=== PATIENT | female | born 1950 | race Hispanic/Latino ===

== ENCOUNTER 2018-12-11 13:23 | Emergency (ER) | payer MEDICARE ==
[~2018-12-11] VITALS: Ht 152.4 cm; Wt 63.5 kg
--- OUTSIDE RECORDS SUMMARY | 2018-12-11 13:26 | XMS REPORT | CCD ---
Author Author Auto Generated Organization [facility] Address Unknown Phone Unavailable Care Team Providers Care Line Installation Supervisor Name Role Phone Nimco Larkin CP Allergies, Adverse Reactions, Alerts Substance Reaction Status penicillins Active Problem List Condition Effective Dates Status dm Resolved GERD - Gastro-esophageal reflux disease Resolved HLD - Hyperlipidemia Resolved HTN - Hypertension Resolved Medications Medication Instructions Start Date End Date Status ondansetron 4 mg, Route: IVP, ONCE, Dosing 11/11/2012 11/12/2012 Completed Weight 77.273, kg, Priority: STAT, Start date: 11/11/12 23:41:00, Stop date: 11/11/12 23:41:00 nitroglycerin 0.4 mg, 1 tab, Route: SL, Drug 11/11/2012 11/12/2012 Discontinued form: TAB, Q5Min, Dosing Weight 77.273, kg, PRN Chest Pain, Start date: 11/11/12 23:41:00, Duration: 3 doses or times, Stop date: Limited # of times Saline Flush 0.9% 5 mL, Route: IVP, Drug Form: INJ, 11/11/2012 11/12/2012 Discontinued Dosing Weight 77.273, kg, Q8H, PRN Line Flush, Start date: 11/11/12 23:41:00, Duration: 30 day, Stop date: 12/11/12 23:40:00, Administer at least once every 8 hours Administer at least once every 8 hours GI cocktail 30 mL, Route: PO, Dosing Weight 11/12/2012 11/12/2012 Completed 77.273, kg, ONCE, STAT, Start date: 11/12/12 2:13:00, Stop date: 11/12/12 2:13:00 ketorolac 30 mg, Route: IVP, Drug form: INJ, 11/12/2012 11/12/2012 Completed ONCE, Dosing Weight 77.273, kg, Priority: STAT, Start date: 11/12/12 2:13:00, Stop date: 11/12/12 2:13:00 naproxen 500 mg oral 500 mg, PO, BID, PRN, 30 tab, Pain, 11/12/2012 11/27/2012 Ordered enteric coated Substitution Allowed delayed-release tablet Zantac 150 oral 150 mg, 1 tab, PO, BID, 60 tab, 11/12/2012 Ordered tablet Substitution Allowed Vital Signs Most recent to oldest [Reference Range]: 1 2 3 Height 152.4 cm (11/11/2012 23:11:00) Temperature Oral [96.4-99.1 DegF] 97.6 DegF (11/12/2012 02:26:00) 99.3 DegF *HI* (11/11/2012 23:11:00) Systolic Blood Pressure [90-140 mmHg] 142 mmHg *HI* (11/12/2012 02:26:00) 147 mmHg *HI* (11/12/2012 01:20:00) 143 mmHg *HI* (11/12/2012 00:18:00) Diastolic Blood Pressure [60-90 mmHg] 71 mmHg (11/12/2012 02:26:00) 56 mmHg *LOW* (11/12/2012 01:20:00) 47 mmHg *LOW* (11/12/2012 00:18:00) Respiratory Rate [14-20 BRMIN] 21 BRMIN *HI* (11/12/2012 02:26:00) 19 BRMIN (11/12/2012 01:20:00) 25 BRMIN *HI* (11/12/2012 00:18:00) Peripheral Pulse Rate [60-100 bpm] 80 bpm (11/11/2012 23:11:00) Weight 77.273 kg (11/11/2012 23:11:00) Results CHEMISTRY Most recent to oldest [Reference Range]: 1 Sodium Lvl [135-145 mEq/L] 143 mEq/L (11/11/2012 00:30:00) Potassium Lvl [3.5-5.1 mEq/L] 3.9 mEq/L (11/11/2012 00:30:00) Chloride Lvl [95-109 mEq/L] 105 mEq/L (11/11/2012 00:30:00) CO2 [24-32 mEq/L] 24 mEq/L (11/11/2012 00:30:00) AGAP [10.0-20.0 mEq/L] 17.9 mEq/L (11/11/2012 00:30:00) Creatinine Lvl [0.5-1.4 mg/dL] 0.8 mg/dL (11/11/2012 00:30:00) eGFR 79 mL/min/1.73m2 1 *NA* (11/11/2012 00:30:00) BUN [7-22 mg/dL] 20 mg/dL (11/11/2012 00:30:00) B/C Ratio [6-25] 25 (11/11/2012 00:30:00) Glucose Lvl [70-99 mg/dL] 242 mg/dL 2 *HI* (11/11/2012 00:30:00) Total Protein [6.4-8.4 g/dL] 7.5 g/dL (11/11/2012 00:30:00) Albumin Lvl [3.5-5.0 g/dL] 3.6 g/dL (11/11/2012 00:30:00) Globulin [2.0-4.0 g/dL] 3.9 g/dL (11/11/2012 00:30:00) A/G Ratio [0.7-1.6] 0.9 (11/11/2012 00:30:00) Calcium Lvl [8.5-10.5 mg/dL] 9.1 mg/dL (11/11/2012 00:30:00) ALT [0-65 unit/L] 28 unit/L (11/11/2012 00:30:00) AST [0-37 unit/L] 16 unit/L (11/11/2012 00:30:00) Alk Phos [39-136 unit/L] 154 unit/L *HI* (11/11/2012 00:30:00) Bili Total [0.2-1.3 mg/dL] 0.2 mg/dL (11/11/2012 00:30:00) Lipase Lvl [73-393 unit/L] 106 unit/L (11/11/2012 00:30:00) Total CK [12-191 unit/L] 36 unit/L (11/11/2012 00:30:00) CK MB [0.5-3.6 ng/mL] <0.5 ng/mL (11/11/2012 00:30:00) CK MB Index [0.0-2.5] <1.4 (11/11/2012 00:30:00) Troponin-I [0.00-0.40 ng/mL] <0.02 ng/mL (11/11/2012 00:30:00) BNP [<=100 pg/mL] 19 pg/mL 3 (11/11/2012 00:30:00) 1Result Comment: The eGFR is calculated using the CKD-EPI formula. In most young, healthy individuals the eGFR will be >90 mL/min/1.73m2. The eGFR declines with age. An eGFR of 60-89 may be normal in some populations, particularly the elderly, for whom the CKD-EPI formula has not been extensively validated. Use of the eGFR is not recommended in the following populations: Individuals with unstable creatinine concentrations, including patients and those with serious co-morbid conditions. Patients with extremes in muscle mass or diet. The data above are obtained from the National Kidney Disease Education Program ( NKDEP) which additionally recommends that when the eGFR is used in patients with extremes of body mass index for purposes of drug dosing, the eGFR should be mul tiplied by the estimated BMI. 2Interpretive Data: Adult reference range values reflect the clinical guidelines of the [place] [employer]. 3Interpretive Data: Elevated results are in line with increasing severity of congestive heart failure. Minor elevations between 100 and 300 may be seen with Myocardial Ischemia, Sodium retaining drugs, and compensated/treated heart failure. HEMATOLOGY Most recent to oldest [Reference Range]: 1 WBC [3.7-10.4 K/CMM] 6.8 K/CMM (11/11/2012 00:30:00) RBC [4.20-5.40 M/CMM] 4.49 M/CMM (11/11/2012 00:30:00) Hgb [12.0-16.0 g/dL] 13.0 g/dL (11/11/2012 00:30:00) Hct [36.0-48.0 %] 39.4 % (11/11/2012 00:30:00) MCV [81.0-99.0 fL] 87.7 fL (11/11/2012 00:30:00) MCH [27.0-31.0 pg] 28.9 pg (11/11/2012 00:30:00) MCHC [32.0-36.0 g/dL] 33.0 g/dL (11/11/2012 00:30:00) RDW [11.5-14.5 %] 13.3 % (11/11/2012 00:30:00) Platelet [133-450 K/CMM] 235 K/CMM (11/11/2012 00:30:00) MPV [7.4-10.4 fL] 9.1 fL (11/11/2012 00:30:00) Segs [45.0-75.0 %] 59.0 % (11/11/2012 00:30:00) Lymphocytes [20.0-40.0 %] 32.3 % (11/11/2012 00:30:00) Monocytes [2.0-12.0 %] 6.7 % (11/11/2012 00:30:00) Eosinophils [0.0-4.0 %] 1.4 % (11/11/2012 00:30:00) Basophils [0.0-1.0 %] 0.6 % (11/11/2012 00:30:00) Segs-Bands # [1.5-8.1 K/CMM] 4.0 K/CMM (11/11/2012 00:30:00) Lymphocytes # [1.0-5.5 K/CMM] 2.2 K/CMM (11/11/2012 00:30:00) Monocytes # [0.0-0.8 K/CMM] 0.5 K/CMM (11/11/2012 00:30:00) Eosinophils # [0.0-0.5 K/CMM] 0.1 K/CMM (11/11/2012 00:30:00) Basophils # [0.0-0.2 K/CMM] 0.0 K/CMM (11/11/2012 00:30:00) D-Dimer 0.22 ug/mL FEU 4 *NA* (11/11/2012 00:30:00) 4Interpretive Data: In DIC, quantitative D-Dimer is generally greater than 0.66 ug/mL FEU. Values of quantitative D-Dimer less than 0.40 ug/mL FEU have been reported to be associated with a low probability of deep vein thrombosis/pulmonary embolism. This test alone should not be used to rule out DVT/PE.
--- OUTSIDE RECORDS SUMMARY | 2018-12-11 13:26 | XMS REPORT | Summary of Care ---
Author Author [facility] Organization [facility] Address Unknown Phone Unavailable Encounter HQ Funmintr_edgar(FIN) [id number] Date(s): 03/05/17 - 03/06/17 [facility] [address], [address] [place], [place] [id number]- [phone] Vital Signs No data available for this section Problem List Condition Effective Dates Status Health Status Informant Benign Active hypertension(Confirm ed)1 Chronic Active headaches(Confirmed) Non-compliance(Confi Active rmed) GERD - Active Gastro-esophageal reflux disease(Confirmed) Type 2 diabetes Active mellitus with hyperglycemia(Confir med) Hyperlipidemia(Confi 01/08/13 Active rmed)2 Elevated Active LFTs(Confirmed) Microalbuminuria(Con Active firmed) Obesity(Confirmed) Active Post-menopause(Confi Active rmed) Insomnia(Confirmed) Active DM type 2 causing Active CKD stage 2(Confirmed) 1Data migrated from [employer] on 08/13/14. 2Data migrated from [employer] on 08/13/14. Allergies, Adverse Reactions, Alerts Substance Reaction Severity Status penicillins1 Active 1Data migrated from [employer] on 10/13/14. Originally documented as PENICILLIN. Medications No data available for this section Results No data available for this section Immunizations Given and Recorded Vaccine Date Status Refusal Reason influenza virus vaccine, inactivated1 01/15/17 Given 1Result Comment: Patient waited 15 min with no reaction. Procedures Procedure Date Related Diagnosis Body Site Diabetic retinopathy screening1 03/17/16 Colonoscopy2 2016 Mammogram 2016 Cervical cytology screening 2015 Hysterectomy 1no retinopathy 2diverticulosis Social History Social History Type Response Exercise Exercise duration: 30. Exercise frequency: 3-4 times/week. Exercise type: Walking. Alcohol Never Smoking Status Former smoker; Exposure to Tobacco Smoke None; Cigarette Smoking Last 365 Days No; Reg Smoking Cessation Counseling No1 1Stopped smoking about 30 years ago. Assessment and Plan No data available for this section
--- OUTSIDE RECORDS SUMMARY | 2018-12-11 13:26 | XMS REPORT | Summary of Care ---
Author Author [facility] Organization [facility] Address Unknown Phone Unavailable Encounter HQ Encntr_aliindra(FIN) [id number] Date(s): 01/01/18 - 01/01/18 [facility] [address] [address]- Attending Physician: Nida Bolivar DO Vital Signs No data available for this section Problem List Condition Effective Dates Status Health Status Informant Benign Active hypertension(Confirm ed)1 Chronic Active cough(Confirmed) Chronic Active headaches(Confirmed) Non-compliance(Confi Active rmed) GERD - Active Gastro-esophageal reflux disease(Confirmed) Type 2 diabetes Active mellitus with hyperglycemia(Confir med) Hyperlipidemia(Confi 01/08/13 Active rmed)2 Microalbuminuria(Con Active firmed) Non-proliferative Active diabetic retinopathy(Confirme d) Obesity(Confirmed) Active Insomnia(Confirmed) Active Subclinical Active hypothyroidism(Confi rmed) 1Data migrated from [employer] on 08/13/14. [...] Procedures Procedure Date Related Diagnosis Body Site Status Diabetic retinopathy screening 06/24/17 Completed Diabetic retinopathy screening1 03/17/16 Completed Colonoscopy2 2015 Completed Mammogram 2015 Completed Cervical cytology screening 2014 Completed Hysterectomy Completed 1no retinopathy 2diverticulosis Social History Social History Type Response Exercise Exercise duration: 30. Exercise frequency: 3-4 times/week. Exercise type: Walking. Alcohol Never Smoking Status Former smoker; Type: Cigarettes; Previous treatment: None; Ready to change: No; Concerns about tobacco use in household: No; Exposure to Tobacco Smoke None; Cigarette Smoking Last 365 Days No; Reg Smoking Cessation Counseling No1 entered on: 10/04/17 1Stopped smoking about 30 years ago. Assessment and Plan No data available for this section
--- OUTSIDE RECORDS SUMMARY | 2018-12-11 13:26 | XMS REPORT | Clinical Summary ---
Author Author [facility] Address Unknown Phone Unavailable Care Team Providers Care Mass Spectrometry Specialist Name Role Phone Nida Bolivar PCP Unavailable Allergies Comments Active Allergy Reactions Severity Noted Date Penicillins Rash Low 09/27/2014 Medications End Date Status Medication Sig Dispensed Refills Start Date Active insulin aspart (NOVOLOG) Inject 0 100 unit/mL injection subcutaneousl y 3 (three) times daily before meals Sliding Scale. Active mirtazapine (REMERON) 30 Take 30 mg by 0 MG tablet mouth nightly. Active dexlansoprazole 60 mg Take 60 mg by 0 capsule mouth daily. Active atorvastatin (LIPITOR) 40 Take 40 mg by 0 MG tablet mouth daily. Active lisinopril Take 2 30 tablet 0 (PRINIVIL,ZESTRIL) 10 MG tablets (20 7 tablet mg total) by mouth daily. 01/28/2018 acetaminophen (TYLENOL) Take 2 30 tablet 0 325 MG tablet tablets (650 7 mg total) by mouth every 6 (six) hours as needed for up to 360 days. Active Problems Problem Noted Date History of seizure 01/29/2017 Encephalopathy 01/28/2017 Fever 01/28/2017 Hypokalemia 06/11/2015 Diarrhea 06/10/2015 Dehydration 06/10/2015 Hypertension 06/10/2015 Hypercholesterolemia 06/10/2015 Type 2 diabetes mellitus without complication, with long-term current use 06/10/2015 of insulin Diabetes mellitus 06/10/2015 Family History Medical History Relation Name Comments Diabetes Brother Diabetes Sister Relation Name Status Comments Brother Sister Social History Date Tobacco Use Types Packs/Day Years Used Never Smoker Alcohol Use Drinks/Week oz/Week Comments No Sex Assigned at Date Recorded Not on file Industry Job Start Date Occupation Not on file Not on file Not on file Travel End Travel History Travel Start No recent travel history available. Last Filed Vital Signs Not on file Plan of Treatment Not on file Results Not on fileafter 12/10/2017 Insurance Payer Benefit Subscriber ID Type Phone Address Plan / Group [employer] MEDICARE [employer] xxxxxxxx [employer] Advance Directives For more information, please contact: [address] [address] Date Inactivated Comments Code Status Date Activated 02/02/2017 2:21 PM Full Code 01/28/2017 11:42 AM This code status was determined by: Patient 06/11/2015 3:40 PM Full Code 06/10/2015 9:45 AM This code status was determined by: Patient
--- OUTSIDE RECORDS SUMMARY | 2018-12-11 13:26 | XMS REPORT | Summary of Care ---
Author Author [facility] Organization [facility] Address Unknown Phone Unavailable Encounter HQ Funmintr_edgar(FIN) [id number] Date(s): 02/17/17 - 02/18/17 [facility] [address], [address] [place], [place] [address]- [phone] Vital Signs No data available for this [...]
--- OUTSIDE RECORDS SUMMARY | 2018-12-11 13:26 | XMS REPORT | Continuity of Care Document ---
Author Author [employer] Address Unknown Phone Unavailable Care Team Providers Care Progressive Care Manager Name Role Phone Yatedo Unavailable Unavailable Problems Problem Status Onset Date Classification Date Reported Comments Source Cough 10/04/2017 04/23/2018 [facility] COUGH Active 10/04/2017 [facility] Other specified disorders of breast 06/18/2017 09/17/2017 [facility] DX: INCONCLUSIVE MMG Active 05/29/2017 [facility] Encounter for screening mammogram for malignant neoplasm of breast 05/15/2017 08/13/2017 [facility] DX: Z13.820=ENCOUNTER FOR SCREENING FOR Active 04/14/2017 [facility] Nausea 03/13/2017 03/16/2017 [facility] Weakness 03/13/2017 03/16/2017 [facility] LOW BLOOD SUGAR Active 03/12/2017 [facility] Hyperlipidemia (disorder) Active 01/08/2013 Problem 07/21/2018 Data migrated from [employer] on 08/13/14. Medical [facility] CHEST PAIN Active 11/11/2012 [facility] Benign hypertension (disorder) Active Problem 07/21/2018 Data migrated from [employer] on 08/13/14. Medical [facility] Chronic headache disorder (disorder) Active Problem 07/21/2018 Medical [facility] Noncompliance (finding) Active Problem 07/21/2018 [facility] Gastroesophageal reflux disease (disorder) Active Problem 07/21/2018 [facility] Hyperglycemia due to type 2 diabetes mellitus (disorder) Active Problem 07/21/2018 Medical [facility] Liver function tests abnormal (finding) Active Problem 09/26/2017 Medical [facility] Microalbuminuria (finding) Active Problem 07/21/2018 Medical [facility] Obesity (disorder) Active Problem 07/21/2018 [facility] Postmenopausal state (finding) Active Problem 09/26/2017 [facility] Insomnia (disorder) Active Problem 07/21/2018 [facility] Diabetes mellitus type 2 (disorder) Active Problem 09/26/2017 [facility] Disorder of bone, unspecified 08/13/2017 [facility] Other specified disorders of bone density and structure, other site 08/13/2017 [facility] Other specified disorders of bone density and structure, left thigh 08/13/2017 [facility] Chronic cough (finding) Active Problem 07/21/2018 [facility] Non proliferative diabetic retinopathy (disorder) Active Problem 07/21/2018 Medical [facility] Subclinical hypothyroidism (disorder) Active Problem 07/21/2018 Medical [facility] Solitary cyst of left breast 09/17/2017 [facility] Solitary cyst of right breast 09/17/2017 [facility] dm Resolved Problem 11/14/2012 [facility] GERD - Gastro-esophageal reflux disease Resolved Problem 11/14/2012 [facility] HLD - Hyperlipidemia Resolved Problem 11/14/2012 [facility] HTN - Hypertension Resolved Problem 11/14/2012 [facility] Type 2 diabetes mellitus without complications 04/23/2018 [facility] Essential (primary) hypertension 04/23/2018 [facility] Hyperlipidemia, unspecified 04/23/2018 [facility] Personal history of nicotine dependence 04/23/2018 [facility] skilled nursing (current) use of insulin 04/23/2018 [facility] INCONCLUSIVE MAMMOGRAM Active [facility] DISORDER OF BONE, UNSPECIFIED Active [facility] Medications Medication Details Route Status Patient Instructions Ordering Provider Order Date Source dexlansoprazole 60 MG Enteric Coated Capsule [Dexilant] See Instructions, TAKE 1 CAPSULE BY MOUTH DAILY, # 90 cap, 1 Refill(s), Pharmacy: [facility] [id number] Active 10/15/2017 [facility] dexlansoprazole 60 MG Enteric Coated Capsule [Dexilant] See Instructions, TAKE 1 CAPSULE BY MOUTH DAILY, # 90 cap, 1 Refill(s), Pharmacy: [facility] No Longer Active 10/14/2017 [facility] {21 (Methylprednisolone 4 MG Oral Tablet [Medrol]) } Pack [Medrol Dosepak] See Instructions, PO, Take by mouth as directed on label., # 1 Pack, 0 Refill(s) Active 10/04/2017 [facility] dexlansoprazole 60 MG Enteric Coated Capsule [Dexilant] See Instructions, TAKE 1 CAPSULE BY MOUTH DAILY, # 90 cap, 1 Refill(s), Pharmacy: [facility] [id number] No Longer Active 10/02/2017 [facility] atorvastatin 40 mg oral tablet 40 mg=1 tab, PO, Bedtime, # 90 tab, 1 Refill(s), [facility] [id number] Active 10/02/2017 [facility] losartan 50 mg oral tablet 50 mg=1 tab, PO, Daily, # 90 tab, 1 Refill(s), Pharmacy: [facility] [id number] Active 10/02/2017 [facility] Group benzonatate 100 mg oral capsule 100 mg=1 cap, PO, TID, do not crush or chew, X 10 day, # 30 cap, 2 Refill(s), [facility] [id number] No Longer Active 10/02/2017 [facility] 3 ML Insulin Glargine 100 UNT/ML Pen Injector [Basaglar] 20 unit, SUB-Q, Bedtime, # 6 mL, 3 Refill(s) Active 10/02/2017 [facility] amitriptyline 25 mg oral tablet 25 mg=1 tab, PO, Bedtime, # 30 tab, 1 Refill(s) Active 10/02/2017 [facility] Trulicity Pen 1.5 mg, SUB-Q, qWeek, 0 Refill(s) Active 10/02/2017 [facility] lisinopril 10 mg oral tablet 10 mg=1 tab, PO, Daily, # 30 tab, 0 Refill(s) Inactive 10/02/2017 [facility] Group lisinopril 20 mg oral tablet 20 mg=1 tab, PO, Daily, # 90 tab, 1 Refill(s), [facility] [id number] Active 05/15/2017 [facility] naproxen 500 mg oral enteric coated delayed-release tablet 500 mg, PO, BID, PRN, 30 tab, Pain, Substitution Allowed PO Active [place] 11/12/2012 [facility] Zantac 150 oral tablet 150 mg, 1 tab, PO, BID, 60 tab, Substitution Allowed PO Active [place] 11/12/2012 [facility] GI cocktail 30 mL, Route: PO, Dosing Weight 77.273, kg, ONCE, STAT, Start date: 11/12/12 2:13:00, Stop date: 11/12/12 2:13:00 PO No Longer Active [place] 11/12/2012 [facility] ketorolac 30 mg, Route: IVP, Drug form: INJ, ONCE, Dosing Weight 77.273, kg, Priority: STAT, Start date: 11/12/12 2:13:00, Stop date: 11/12/12 2:13:00 IVP No Longer Active [facility] 11/12/2012 [facility] ondansetron 4 mg, Route: IVP, ONCE, Dosing Weight 77.273, kg, Priority: STAT, Start date: 11/11/12 23:41:00, Stop date: 11/11/12 23:41:00 IVP No Longer Active [facility] 11/12/2012 [facility] nitroglycerin 0.4 mg, 1 tab, Route: SL, Drug form: TAB, Q5Min, Dosing Weight 77.273, kg, PRN Chest Pain, Start date: 11/11/12 23:41:00, Duration: 3 doses or times, Stop date: Limited # of times SL No Longer Active [facility] 11/12/2012 [facility] Saline Flush 0.9% 5 mL, Route: IVP, Drug Form: INJ, Dosing Weight 77.273, kg, Q8H, PRN Line Flush, Start date: 11/11/12 23:41:00, Duration: 30 day, Stop date: 12/11/12 23:40:00, Administer at least once every 8 hoursAdminister at least once every 8 hours IVP No Longer Active [place] 11/12/2012 [facility] Allergies, Adverse Reactions, Alerts Substance Category Reaction Severity Reaction type Status Date Reported Comments Source penicillins<sup>1</sup> Assertion Drug allergy Active Data migrated from [employer] on 10/13/14. Originally documented as PENICILLIN. Medical Group penicillins drug allergy Allergy Active [facility] Immunizations Immunization Date Given Site Status Last Updated Comments Source influenza virus vaccine, inactivated<sup>1</sup> 01/15/2017 Right Deltoid completed [facility] Result Comment: Patient waited 15 min with no reaction. Medical Group,[facility] Results Order Name Results Value Reference Range Date Interpretation Comments Source CHEMISTRY BNP 19 <=100 11/11/2012 Normal <sup>3</sup>Interpretive Data: Elevated results are in line with increasing severity of
congestive heart failure. Minor elevations between 100 and 300
may be seen with Myocardial Ischemia, Sodium retaining drugs,
and compensated/treated heart failure. [facility] CHEMISTRY Lipase Lvl 106 73 - 393 11/11/2012 Normal [facility] CHEMISTRY Total CK 36 12 - 191 11/11/2012 Normal [facility] CHEMISTRY CK MB <0.5 0.5 - 3.6 11/11/2012 Normal [facility] CHEMISTRY Troponin-I <0.02 0.00 - 0.40 11/11/2012 Normal [facility] CHEMISTRY Chloride Lvl 105 95 - 109 11/11/2012 Normal [facility] CHEMISTRY Potassium Lvl 3.9 3.5 - 5.1 11/11/2012 Normal [facility] CHEMISTRY Sodium Lvl 143 135 - 145 11/11/2012 Normal [facility] CHEMISTRY eGFR 79 11/11/2012 NA <sup>1</sup>Result Comment: The eGFR is calculated using the CKD-EPI formula. In most young, healthy individuals the eGFR will be >90 mL/min/1.73m2. The eGFR declines with age. An eGFR of 60-89 may be normal in some populations, particularly the elderly, for whom the CKD-EPI formula has not been extensively validated. Use of the eGFR is not recommended in the following populations:& lt;br/>
Individuals with unstable creatinine concentrations, including patients and those with serious co-morbid conditions.

Patients with extremes in muscle mass or diet.

The data above are obtained from the National Kidney Disease Education Program (NKDEP) which additionally recommends that when the eGFR is used in patients with extremes of body mass index for purposes of drug dosing, the eGFR should be multiplied by the estimated BMI. [facility] CHEMISTRY BUN 20 7 - 22 11/11/2012 Normal [facility] CHEMISTRY Glucose Lvl 242 70 - 99 11/11/2012 [place] <sup>2</sup>Interpretive Data: Adult reference range values reflect the clinical guidelines
of the [place] [employer]. [facility] CHEMISTRY Total Protein 7.5 6.4 - 8.4 11/11/2012 Normal [facility] CHEMISTRY Calcium Lvl 9.1 8.5 - 10.5 11/11/2012 Normal [facility] CHEMISTRY Creatinine Lvl 0.8 0.5 - 1.4 11/11/2012 Normal [facility] CHEMISTRY CO2 24 24 - 32 11/11/2012 Normal [facility] CHEMISTRY Bili Total 0.2 0.2 - 1.3 11/11/2012 Normal [facility] CHEMISTRY Alk Phos 154 39 - 136 11/11/2012 HI [facility] CHEMISTRY ALT 28 0 - 65 11/11/2012 Normal [facility] CHEMISTRY Albumin Lvl 3.6 3.5 - 5.0 11/11/2012 Normal [facility] CHEMISTRY Globulin 3.9 2.0 - 4.0 11/11/2012 Normal [facility] CHEMISTRY B/C Ratio 25 6 - 25 11/11/2012 Normal [facility] CHEMISTRY AST 16 0 - 37 11/11/2012 Normal [facility] CHEMISTRY AGAP 17.9 10.0 - 20.0 11/11/2012 Normal [facility] CHEMISTRY A/G Ratio 0.9 0.7 - 1.6 11/11/2012 Normal [facility] CHEMISTRY CK MB Index <1.4 0.0 - 2.5 11/11/2012 Normal [facility] HEMATOLOGY D-Dimer 0.22 11/11/2012 NA <sup>4</sup>Interpretive Data: In DIC, quantitative D-Dimer is generally greater than
0.66 ug/mL FEU. Values of quantitative D-Dimer less than
0.40 ug/mL FEU have been reported to be associated with a low
probability of deep vein thrombosis/pulmonary embolism.
This test alone should not be used to rule out DVT/PE. [facility] HEMATOLOGY Hct 39.4 36.0 - 48.0 11/11/2012 Normal [facility] HEMATOLOGY MCV 87.7 81.0 - 99.0 11/11/2012 Normal [facility] HEMATOLOGY Hgb 13.0 12.0 - 16.0 11/11/2012 Normal [facility] HEMATOLOGY MCH 28.9 27.0 - 31.0 11/11/2012 Normal [facility] HEMATOLOGY MCHC 33.0 32.0 - 36.0 11/11/2012 Normal [facility] HEMATOLOGY WBC 6.8 3.7 - 10.4 11/11/2012 Normal [facility] HEMATOLOGY RBC 4.49 4.20 - 5.40 11/11/2012 Normal [facility] HEMATOLOGY Platelet 235 133 - 450 11/11/2012 Normal [facility] MPV 9.1 7.4 - 10.4 11/11/2012 Normal [facility] RDW 13.3 11.5 - 14.5 11/11/2012 Normal [facility] Segs 59.0 45.0 - 75.0 11/11/2012 Normal [facility] Lymphocytes 32.3 20.0 - 40.0 11/11/2012 Normal [facility] Monocytes # 0.5 0.0 - 0.8 11/11/2012 Normal [facility] HEMATOLOGY Eosinophils # 0.1 0.0 - 0.5 11/11/2012 Normal [facility] Basophils # 0.0 0.0 - 0.2 11/11/2012 Normal [facility] Basophils 0.6 0.0 - 1.0 11/11/2012 Normal [facility] Monocytes 6.7 2.0 - 12.0 11/11/2012 Normal [facility] Segs-Bands # 4.0 1.5 - 8.1 11/11/2012 Normal [facility] Lymphocytes # 2.2 1.0 - 5.5 11/11/2012 Normal [facility] Eosinophils 1.4 0.0 - 4.0 11/11/2012 Normal [facility] Pathology Reports No Data Provided for This Section Diagnostic Reports Report Value Date Source Chest 1view DX Chest, single view dated 10/04/2017. HISTORY: Cough. Comparison is made to a prior study dated 11/11/2012. The heart is normal in size. Atherosclerotic calcification is identified in the aortic arch. The lungs appear clear. The pulmonary vasculature is normal in caliber. No acute pleural space after maladies are detected. IMPRESSION: 1. No radiographic evidence of acute cardiopulmonary disease. SL: 131 10/04/2017 [facility] Breast Complete Janet US COMPLETE ULTRASOUND OF BOTH BREASTS AND AXILLA: 06/11/2017 CLINICAL: /Densities abnormal mammogram, mammographic nodule/density. COMPARISON:Comparison is made to exam dated: 05/07/2017 mammogram - [facility]. TECHNIQUE: Color flow and real-time ultrasound of both breasts four quadrants, retroareolar, and axilla regions were performed. Nielsen scale images of the real- time examination were reviewed. FINDINGS: There are small benign scattered simple and minimally complicated cysts with a circumscribed margin with internal echoes and posterior enhancement both breasts that correlate with mammography. No abnormalities were seen sonographically in either axilla. IMPRESSION: BENIGN There is no sonographic evidence of malignancy. Return to annual mammogram screening schedule is recommended.(05/07/2018) The results were reviewed with the patient and her daughter. This exam was interpreted at [id number] for [facility]. Walter Glynn M.D. jt/:06/11/2017 11:12:14 [employer] Kenroy Holman, [facility] letter sent: BI-RADS 1/2 Ultrasound BI-RADS: 2 Benign 06/11/2017 [facility] Breast Mammo Scrn JANET incl CAD MA BILATERAL DIGITAL SCREENING MAMMOGRAM WITH CAD: 05/07/2017 CLINICAL: /Routine. Current study was evaluated with a Computer Aided Detection (CAD) system. COMPARISON:Exam is read without the benefit of comparison films. We have not yet received films from the prior facility where the patient states her prior mammograms were performed. Interpretation has been delayed secondary to this. TECHNIQUE: Mammographic views were obtained using digital acquisition. [employer] Version 1.3 was utilized for computer aided detection. FINDINGS: The tissue of both breasts is heterogeneously dense, which could obscure detection of small masses. Scattered densities are noted in both breasts. There are benign vascular calcifications and calcifications in both breasts. No significant masses, calcifications, or other findings are seen in either breast. IMPRESSION: INCOMPLETE: NEEDS ADDITIONAL IMAGING EVALUATION Scattered densities are noted in both breasts. Further evaluation with bilateral ultrasound and possible diagnostic mammogram is recommended unless previous films are received and show no significant interval change. SUMMARY: Prior mammograms would be of added benefit to document mcc stability. This aids in establishing benignity. The patient should make additional efforts to locate her prior exams. An addendum will be made if additional films are provided. This exam was interpreted at [id number] for [facility]. Walter Glynn M.D. jt/:05/22/2017 14:54:47 [employer] Adele Rutherford, [facility] letter sent: BI-RADS 0 Mammogram BI-RADS: 0 Indeterminate 05/07/2017 [facility] Bone Density Scan Patient Name: CHINA ROMAN : 1950; Age: 66 years y/o Female MR: [id number] Study: Bone Density Scan 05/07/2017 3:16 PM [facility] [employer] Ordering Physician: Bubba Thompson MD Clinical Indication: - M89.9 Disorder of bone, unspecified. Comparison: None FINDINGS: The axial lumbar bone mineral density is 79% of the expected age matched bone mass with a T-score -2.0. Axial lumbar average BMD is 0.823 g/cm2. The left femoral neck bone mineral density is 76% of the expected age matched bone mass with a T-score of -1.8. Left femoral neck BMD is 0.660 g/cm2. The total femoral BMD is 0.835 g/cm2. IMPRESSION: 1. Osteopenia of the lumbar spine. 2. Osteopenia of the left femoral neck. The World Health Organization has established that OSTEOPOROSIS occurs at -2.5 or more standard deviations (SD) below peak bone mass. OSTEOPENIA (low bone mass) occurs at -1.0 standard deviations to -2.5 standard deviations below peak bone mass. SL: JANICE 05/07/2017 [facility] Consultation Notes No Data Provided for This Section Discharge Summaries No Data Provided for This Section History and Physicals No Data Provided for This Section Vital Signs Vital Sign Value Date Comments Source Heart Rate 74 10/04/2017 [facility] Temperature Oral (F) 98 F 10/04/2017 [facility] Systolic (mm Hg) 142 10/04/2017 [facility] Diastolic (mm Hg) 76 10/04/2017 [facility] Respitory Rate 16 10/04/2017 [facility] Weight 75.909 10/04/2017 [facility] Height 157.48 cm 10/04/2017 [facility] BMI Calculated 30.61 10/04/2017 [facility] Temperature Oral (F) 97.8 F 10/04/2017 [facility] Systolic (mm Hg) 156 10/04/2017 [facility] Diastolic (mm Hg) 72 10/04/2017 [facility] Respitory Rate 20 10/04/2017 [facility] Heart Rate 73 10/04/2017 [facility] Weight 72.727 10/02/2017 [facility] Height 152.4 cm 10/02/2017 [facility] BMI Calculated 31.31 10/02/2017 [facility] Temperature Oral (F) 98.2 F 10/02/2017 [facility] Respitory Rate 14 10/02/2017 [facility] Systolic (mm Hg) 150 10/02/2017 [facility] Diastolic (mm Hg) 80 10/02/2017 [facility] Heart Rate 69 10/02/2017 Medical [facility] Temperature Oral (F) 98.5 F 03/13/2017 [facility] Respitory Rate 18 03/13/2017 [facility] Systolic (mm Hg) 178 03/13/2017 [facility] Diastolic (mm Hg) 76 03/13/2017 [facility] BMI Calculated 31.24 03/13/2017 [facility] Weight 75 03/13/2017 [facility] Height 154.94 cm 03/13/2017 [facility] Systolic (mm Hg) 178 03/13/2017 [facility] Diastolic (mm Hg) 78 03/13/2017 [facility] Respitory Rate 18 03/13/2017 [facility] Heart Rate 107 03/13/2017 [facility] Temperature Oral (F) 98 F 03/13/2017 [facility] Respitory Rate 21 11/12/2012 [facility] Temperature Oral (F) 97.6 F 11/12/2012 [facility] Diastolic (mm Hg) 71 11/12/2012 [facility] Systolic (mm Hg) 142 11/12/2012 [facility] Diastolic (mm Hg) 56 11/12/2012 [facility] Respitory Rate 19 11/12/2012 [facility] Systolic (mm Hg) 147 11/12/2012 [facility] Diastolic (mm Hg) 47 11/12/2012 [facility] Systolic (mm Hg) 143 11/12/2012 [facility] Respitory Rate 25 11/12/2012 [facility] Temperature Oral (F) 99.3 F 11/12/2012 [facility] Heart Rate 80 11/12/2012 [facility] Weight 77.273 11/12/2012 [facility] Height 152.4 cm 11/12/2012 [facility] Encounters Location Location Details Encounter Type Encounter Number Reason For Visit Attending Provider ADM Date DC Date Status Source [facility] Emergency [id number] CHRISTION RICE 11/11/2012 11/12/2012 Discharged [facility] Outpatient [id number] MELECIO HADLEY 03/14/2015 Active [facility] Outpatient [id number] MELECIO HADLEY 03/29/2015 Active [facility] Outpatient [id number] MELECIO HADLEY 05/10/2015 Active [facility] Outpatient [id number] MELECIO HADLEY 05/10/2015 Active [facility] Outpatient [id number] CHINA DENT 05/24/2015 Active [facility] [id number] MELECIO HADLEY 08/31/2015 Active [facility] Outpatient [id number] MELECIO HADLEY 09/14/2015 Active [facility] Outpatient [id number] MELECIO HADLEY 10/03/2015 Active [facility] Outpatient [id number] MELECIO HADLEY 10/31/2015 Active [facility]patient [id number] MELECIO HADLEY 11/28/2015 Active [facility] [id number] NIDA DALLASH 03/27/2016 Active [facility] Outpatient [id number] NIDA DALLASH 06/06/2016 Active [facility] [id number] NIDA DALLASH 07/08/2016 Active [facility] [id number] MELECIO HADLEY 12/19/2016 Active [facility] [id number] NIDA DALLASH 12/26/2016 Active [facility] [id number] NURSE VISIT 01/15/2017 Active [facility] Primary Care [facility] Phone Message [id number] 02/17/2017 02/19/2017 Medical Group [facility] Primary Care [facility] Phone Message [id number] 03/05/2017 03/07/2017 Medical Group [facility] Emergency [id number] Danilo Campos 03/13/2017 03/13/2017 [facility] Outpatient [id number] NIDA DALLASH 03/27/2017 Active [facility] [id number] NIDA DALLASH 03/27/2017 Active [facility] Primary Care [facility] Ambulatory Pre-Reg [id number] Nida Dallash 03/27/2017 03/27/2017 Medical Group [facility] Primary Care [facility] Ambulatory Pre-Reg [id number] Nida Dallash 03/27/2017 03/27/2017 [facility] Outpatient [id number] Bubba Thompson 05/07/2017 05/08/2017 [facility] Phone Message [id number] 05/15/2017 05/17/2017 [facility] Outpatient [id number] Bubba Thompson 06/11/2017 06/12/2017 [facility] Phone Message [id number] 08/21/2017 08/23/2017 [facility] Phone Message [id number] 09/22/2017 09/24/2017 [facility] Outpatient [id number] NIDA DALLASH 10/02/2017 Active [facility] Outpatient [id number] Nida Bolivar 10/02/2017 10/03/2017 [facility] Emergency [id number] Nelia Rayo 10/04/2017 10/04/2017 [facility] Outpatient [id number] NIDA JESUS 01/01/2018 Active [facility] Outpatient [id number] NIDA DALLASH 01/01/2018 [facility] Ambulatory Pre-Reg [id number] Nida Jesus 01/01/2018 01/01/2018 [facility] Ambulatory Pre-Reg [id number] Nida Jesus 01/01/2018 01/01/2018 [facility] Procedures Procedure Code Date Perfomer Comments Source Diabetic retinopathy screening [id number] 06/24/2017 [facility] Diabetic retinopathy screening<sup>1</sup> [id number] 03/17/2016 no retinopathy [facility] Colonoscopy<sup>2</sup> [id number] 03/17/2015 diverticulosis [facility] Mammogram [id number] 03/17/2015 [facility] Cervical cytology screening [id number] 03/17/2014 [facility] Hysterectomy [id number] [facility] Assessment and Plan No Data Provided for This Section Plan of Care No Data Provided for This Section Social History Social History Date Source Social History TypeResponse Exercise Exercise duration: 30. Exercise frequency: 3-4 times/week. Exercise type: Walking. Alcohol Never Smoking Status Former smoker; Type: Cigarettes; Previous treatment: None; Ready to change: No; Concerns about tobacco use in household: No; Exposure to Tobacco Smoke None; Cigarette Smoking Last 365 Days No; Reg Smoking Cessation Counseling No1 entered on: 10/04/17 1Stopped smoking about 30 years ago. 12/26/2016 [facility] Social History TypeResponse Exercise Exercise duration: 30. Exercise frequency: 3-4 times/week. Exercise type: Walking. Alcohol Never Smoking Status Never smoker; Concerns about tobacco use in household: No; Exposure to Tobacco Smoke None; Cigarette Smoking Last 365 Days No; Reg Smoking Cessation Counseling No 12/26/2016 [facility] Social History TypeResponse Exercise Exercise duration: 30. Exercise frequency: 3-4 times/week. Exercise type: Walking. Alcohol Never Smoking Status Former smoker; Type: Cigarettes; Previous treatment: None; Ready to change: No; Concerns about tobacco use in household: No; Exposure to Tobacco Smoke None; Cigarette Smoking Last 365 Days No; Reg Smoking Cessation Counseling No1 entered on: 10/04/17 1Stopped smoking about 30 years ago. 12/26/2016 [facility] Family History No Data Provided for This Section Advance Directives No Data Provided for This Section Functional Status No Data Provided for This Section
--- OUTSIDE RECORDS SUMMARY | 2018-12-11 13:26 | XMS REPORT | Summary of Care ---
Author Author [facility] Organization [facility] Address Unknown Phone Unavailable Encounter HQ Encntr_aliindra(FIN) [id number] Date(s): 03/27/17 - 03/27/17 [facility] [address], [address] [place], [place] [address]- [phone] Attending Physician: Nida Bolivar DO Vital Signs [...] Status penicillins1 Active 1Data migrated from [employer] on 10/13/14. Originally documented as PENICILLIN. Medications No data available for this section Results No data available for this section Immunizations Given and Recorded Vaccine Date Status Refusal Reason influenza virus vaccine, inactivated1 01/15/17 Given 1Result Comment: Patient waited 15 min with no reaction. Procedures Procedure Date Related Diagnosis Body Site Status Diabetic retinopathy screening1 03/17/16 Completed Colonoscopy2 2015 Completed Mammogram 2016 Completed Cervical cytology screening 2014 Completed Hysterectomy Completed 1no retinopathy 2diverticulosis Social History Social History Type Response Exercise Exercise duration: 30. Exercise frequency: 3-4 times/week. Exercise type: Walking. Alcohol Never Smoking Status Never smoker; Concerns about tobacco use in household: No; Exposure to Tobacco Smoke None; Cigarette Smoking Last 365 Days No; Reg Smoking Cessation Counseling No entered on: 03/13/17 Assessment and Plan No data available for this section
--- OUTSIDE RECORDS SUMMARY | 2018-12-11 13:26 | XMS REPORT | Summary of Care ---
Author Author [facility] Organization [facility] Address Unknown Phone Unavailable Encounter HQ Encntr_aliindra(FIN) [id number] Date(s): 03/27/17 - 03/27/17 [facility] [address], [address] [place], [place] [address]- [phone] Attending Physician: Nida Bolivar DO Vital Signs [...]
--- OUTSIDE RECORDS SUMMARY | 2018-12-11 13:26 | XMS REPORT | Summary of Care ---
Author Author [facility] Organization [facility] Address Unknown Phone Unavailable Encounter DARRIAN Mccracken(JHONATHAN) [id number] Date(s): 03/13/17 - 03/13/17 [facility] [address] provided by [facility] [employer] [place] [address]- Discharge Diagnosis: Nausea Discharge Diagnosis: Generalized weakness Discharge Disposition: Home or Self Care Attending Physician: Danilo Campos MD Vital Signs Most recent to 1 2 oldest [Reference Range]: Height 154.94 cm (03/13/17 12:59 AM) Temperature Oral 98.5 DegF 98 DegF [96.4-99.1 DegF] (03/13/17 3:15 AM) (03/13/17 12:59 AM) Blood Pressure 178/76 mmHg 178/78 mmHg [90-140/60-90 mmHg] *HI* *HI* (03/13/17 3:15 AM) (03/13/17 12:59 AM) Respiratory Rate 18 BRMIN 18 BRMIN [14-20 BRMIN] (03/13/17 3:15 AM) (03/13/17 12:59 AM) Peripheral Pulse 107 bpm Rate [60-100 bpm] *HI* (03/13/17 12:59 AM) Weight 75 kg (03/13/17 12:59 AM) Body Mass Index 31.24 m2 (03/13/17 12:59 AM) Problem List Condition Effective Dates Status Health [...] Days No; Reg Smoking Cessation Counseling No Assessment and Plan No data available for this section
--- OUTSIDE RECORDS SUMMARY | 2018-12-11 13:27 | XMS REPORT | Summary of Care ---
Author Author [facility] Organization [facility] Address Unknown Phone Unavailable Encounter HQ Funmintr_aliindra(FIN) [id number] Date(s): 05/15/17 - 05/16/17 [facility] [address], [address] [place] [address]- [phone] Vital Signs No data available for this [...] on 10/13/14. Originally documented as PENICILLIN. Medications lisinopril 20 mg oral tablet 20 mg=1 tab, PO, Daily, # 90 tab, 1 Refill(s), Pharmacy: [facility] [id number] Start Date: 05/15/17 Status: Ordered Results No data available for this section [...]
--- OUTSIDE RECORDS SUMMARY | 2018-12-11 13:27 | XMS REPORT | Summary of Care ---
Author Author [facility] Organization [facility] Address Unknown Phone Unavailable Encounter HQ Encntr_aliindra(FIN) [id number] Date(s): 08/21/17 - 08/22/17 [facility] [address], [address] [place] [address]- [phone] Vital Signs No data available for this [...]
--- OUTSIDE RECORDS SUMMARY | 2018-12-11 13:27 | XMS REPORT | Summary of Care ---
Author Author [facility] Organization [facility] Address Unknown Phone Unavailable Encounter HQ Kaykay(FIN) [id number] Date(s): 05/07/17 - 05/07/17 [facility] [address] [place] [address]- [phone] Encounter Diagnosis Encounter for screening mammogram for malignant neoplasm of breast (Final) - 05/14/17 Disorder of bone, unspecified (Final) - Other specified disorders of bone density and structure, other site (Final) - Other specified disorders of bone density and structure, left thigh (Final) - Discharge Disposition: Home or Self Care Attending Physician: Bubba Thompson MD Referring Physician: Bubba Thompson MD Vital Signs No data available for this [...]
--- OUTSIDE RECORDS SUMMARY | 2018-12-11 13:27 | XMS REPORT | Summary of Care ---
Author Author [facility] Organization [facility] Address Unknown Phone Unavailable Encounter HQ Funmintr_aliindra(FIN) [id number] Date(s): 09/22/17 - 09/23/17 [facility] [address], [address] [place] [address] [phone] Vital Signs No data available for this [...]
--- OUTSIDE RECORDS SUMMARY | 2018-12-11 13:27 | XMS REPORT | Summary of Care ---
Author Author [facility] Organization [facility] Address Unknown Phone Unavailable Encounter HQ Encntr_aliindra(FIN) [id number] Date(s): 03/27/17 - 03/27/17 [facility] [address], [address] [place], [place] [address]- [phone] Attending Physician: Nida Bolivar DO Vital Signs [...] Status penicillins1 Active 1Data migrated from [employer] on 10/13/14. Originally documented as PENICILLIN. Medications [...]
--- OUTSIDE RECORDS SUMMARY | 2018-12-11 13:27 | XMS REPORT | Summary of Care ---
Author Author [facility] Organization [facility] Address Unknown Phone Unavailable Encounter HQ Encntr_aliindra(FIN) [id number] Date(s): 10/02/17 - 10/02/17 [facility] [address] [place] [address], [address] [place] [address]- [phone] Discharge Disposition: Home or Self Care Attending Physician: Nida Bolivar DO Vital Signs Most recent to 1 oldest [Reference Range]: Height 152.4 cm (10/02/17 8:03 AM) Temperature Oral 98.2 DegF [96.4-99.1 DegF] (10/02/17 8:03 AM) Blood Pressure 150/80 mmHg [90-140/60-90 mmHg] *HI* (10/02/17 8:03 AM) Respiratory Rate 14 BRMIN [14-20 BRMIN] (10/02/17 8:03 AM) Peripheral Pulse 69 bpm Rate [60-100 bpm] (10/02/17 8:03 AM) Weight 72.727 kg (10/02/17 8:03 AM) Body Mass Index 31.31 m2 (10/02/17 8:03 AM) Problem List Condition Effective Dates Status Health Status Informant Benign Active hypertension(Confirm ed)1 Chronic Active cough(Confirmed) Chronic Active headaches(Confirmed) Non-compliance(Confi Active rmed) GERD - Active Gastro-esophageal reflux disease(Confirmed) Type 2 diabetes Active mellitus with hyperglycemia(Confir med) Hyperlipidemia(Confi 01/08/13 Active rmed)2 Microalbuminuria(Con Active firmed) Non-proliferative Active diabetic retinopathy(Confirme d) Obesity(Confirmed) Active Insomnia(Confirmed) Active Subclinical Active hypothyroidism(Confi rmed) 1Data migrated from [employer] on 08/13/14. 2Data migrated from [employer] on 08/13/14. Allergies, Adverse Reactions, Alerts Substance Reaction Severity Status penicillins1 Active 1Data migrated from [facility] on 10/13/14. Originally documented as PENICILLIN. Medications amitriptyline 25 mg oral tablet 25 mg=1 tab, PO, Bedtime, # 30 tab, 1 Refill(s) Start Date: 10/02/17 Status: Ordered atorvastatin 40 mg oral tablet 40 mg=1 tab, PO, Bedtime, # 90 tab, 1 Refill(s), Pharmacy: [facility] [id number] Start Date: 10/02/17 Status: Ordered Basaglar KwikPen 100 units/mL subcutaneous solution 20 unit, SUB-Q, Bedtime, # 6 mL, 3 Refill(s) Start Date: 10/02/17 Status: Ordered benzonatate 100 mg oral capsule 100 mg=1 cap, PO, TID, do not crush or chew, X 10 day, # 30 cap, 2 Refill(s), Ph armacy: [facility] [id number] Start Date: 10/02/17 Stop Date: 11/01/17 Status: Completed Dexilant 60 mg oral delayed release capsule See Instructions, TAKE 1 CAPSULE BY MOUTH DAILY, # 90 cap, 1 Refill(s), Pharmacy : [facility] Start Date: 10/14/17 Stop Date: 10/15/17 Status: Completed Dexilant 60 mg oral delayed release capsule See Instructions, TAKE 1 CAPSULE BY MOUTH DAILY, # 90 cap, 1 Refill(s), Pharmacy : [facility] [id number] Start Date: 10/02/17 Stop Date: 10/14/17 Status: Completed lisinopril 10 mg oral tablet 10 mg=1 tab, PO, Daily, # 30 tab, 0 Refill(s) Start Date: 10/02/17 Stop Date: 10/02/17 Status: Discontinued losartan 50 mg oral tablet 50 mg=1 tab, PO, Daily, # 90 tab, 1 Refill(s), Pharmacy: [facility] [id number] Start Date: 10/02/17 Stop Date: 03/31/18 Status: Ordered Trulicity Pen 1.5 mg, SUB-Q, qWeek, 0 Refill(s) Start Date: 10/02/17 Status: Ordered Results No data available for [...]
--- OUTSIDE RECORDS SUMMARY | 2018-12-11 13:27 | XMS REPORT | Summary of Care ---
Author Author [facility] Organization [facility] Address Unknown Phone Unavailable Encounter HQ Encntr_aliindra(FIN) [id number] Date(s): 03/27/17 - 03/27/17 [facility] [address], [address] [place], [place] [address]- [phone] Attending Physician: Nida Bolivar DO Vital Signs [...] Status penicillins1 Active 1Data migrated from [employer] on 10/13/14. Originally documented as PENICILLIN. Medications [...]
--- OUTSIDE RECORDS SUMMARY | 2018-12-11 13:27 | XMS REPORT ---
Author Author [facility] Address Unknown Phone Unavailable Care Team Providers Care Ecotherapist Name Role Phone RENUKA MÉNDEZ Unavailable Unavailable Problems This patient has no known problems. Allergies, Adverse Reactions, Alerts This patient has no known allergies or adverse reactions. Medications This patient has no known medications. Results Test Description Test Time Test Comments Text Results Atomic Results Result Comments SCR MAMM BILATERAL RASHAAD CAD DIGITAL 2018-10-21 13:20:04 - SCR MAMM BILATERAL RASHAAD CAD DIGITALBILATERAL DIGITAL SCREENING MAMMOGRAM 3D/2D WITH CAD: 10/15/2018CLINICAL: Asymptomatic. Digital breast tomosynthesis was performed in addition to routine CC and MLO views. Current mammographic images were evaluated by either a [employer] M-Vu or a [employer] ImageChecker CAD (computer aided detection system). Comparison is made to exam dated 05/07/2017 mammogram - [facility] [place] [facility]. There are scattered fibroglandular tissues in both breasts. There are benign calcifications and vascular calcification in both breasts. No suspicious mass, architectural distortion, malignant type calcification, or lymph node abnormality detected. Breast architecture is stable compared to prior exams.IMPRESSION: BENIGNThere is no mammographic evidence of malignancy. Resume annual screening mammography in one year. Benson Fraire M.D. rb/:10/21/2018 13:20:04 Attending Technologist: Wendy White MM, [employer] [place] [employer] MammographyImaging Technologist: Michelle Guerrero MM, [employer] [place] [employer] Mammographyletter sent: BIRADS 1-2 Normal Mammogram BI-RADS: 2 Benign HEMOGLOBIN A1C 2017-02-02 16:53:00 HEMOGLOBIN A1C (BEAKER) (test erlo=650) 10.5 % 4.3-6.1 BLOOD [id number] 10:00:00* Test Item Value Reference Range Comments CULTURE (BEAKER) (test hxqm=3011) No growth in 5 days BLOOD [id number] 10:00:00* Test Item Value Reference Range Comments CULTURE (BEAKER) (test wdtq=2323) No growth in 5 days POCT-GLUCOSE [id number] 08:43:00* Test Item Value Reference Range Comments POC-GLUCOSE METER (BEAKER) (test cewr=7425) 215 mg/dL 70-110 TESTED AT [address] [address] POCT-GLUCOSE [id number] 04:43:00* Test Item Value Reference Range Comments POC-GLUCOSE METER (BEAKER) (test fddh=1862) 199 mg/dL 70-110 TESTED AT [address] [address] POCT-GLUCOSE [id number] 23:22:00* Test Item Value Reference Range Comments POC-GLUCOSE METER (BEAKER) (test piul=8580) 239 mg/dL 70-110 TESTED AT [address] [address] POCT-GLUCOSE [id number] 20:39:00* Test Item Value Reference Range Comments POC-GLUCOSE METER (BEAKER) (test kiqe=1757) 359 mg/dL 70-110 Notified AUSTIN DAMON/TESTED AT [address] [address] POCT-GLUCOSE [id number] 18:03:00* Test Item Value Reference Range Comments POC-GLUCOSE METER (BEAKER) (test ljib=5983) 363 mg/dL 70-110 TESTED AT [address] [address] POCT-GLUCOSE [id number] 12:15:00* Test Item Value Reference Range Comments POC-GLUCOSE METER (BEAKER) (test wyfj=2540) 242 mg/dL 70-110 TESTED AT [address] [address] POCT-GLUCOSE [id number] 08:16:00* Test Item Value Reference Range Comments POC-GLUCOSE METER (BEAKER) (test vnzs=9773) 164 mg/dL 70-110 TESTED AT [address] [address] BASIC METABOLIC [id number] 08:07:00* Test Item Value Reference Range Comments SODIUM (BEAKER) (test ravz=951) 137 meq/L 136-145 POTASSIUM (BEAKER) (test ynul=336) 3.3 meq/L 3.5-5.1 CHLORIDE (BEAKER) (test uzwy=481) 104 meq/L 98-107 CO2 (BEAKER) (test evvs=036) 27 meq/L 22-29 BLOOD UREA NITROGEN (BEAKER) (test creo=777) 10 mg/dL 7-21 CREATININE (BEAKER) (test xlvs=537) 0.58 mg/dL 0.57-1.25 GLUCOSE RANDOM (BEAKER) (test gpkq=028) 134 mg/dL 70-105 CALCIUM (BEAKER) (test zkck=349) 8.9 mg/dL 8.4-10.2 EGFR (BEAKER) (test ojmw=2844) 104 mL/min/1.73 sq m ESTIMATED GFR IS NOT ACCURATE CREATININE CLEARANCE IN PREDICTING GLOMERULAR FILTRATION RATE. ESTIMATED GFR IS NOT APPLICABLE FOR DIALYSIS PATIENTS. CBC W/PLT COUNT & AUTO [id number] 07:15:00* Test Item Value Reference Range Comments WHITE BLOOD CELL COUNT (BEAKER) (test nnpt=301) 8.7 K/ L 3.5-10.5 RED BLOOD CELL COUNT (BEAKER) (test gwgi=960) 4.59 M/ L 3.93-5.22 HEMOGLOBIN (BEAKER) (test fngg=194) 13.2 GM/DL 11.2-15.7 HEMATOCRIT (BEAKER) (test eisw=545) 40.5 % 34.1-44.9 MEAN CORPUSCULAR VOLUME (BEAKER) (test kudv=298) 88.2 fL 79.4-94.8 MEAN CORPUSCULAR HEMOGLOBIN (BEAKER) (test wsax=963) 28.8 pg 25.6-32.2 MEAN CORPUSCULAR HEMOGLOBIN CONC (BEAKER) (test nijn=780) 32.6 GM/DL 32.2-35.5 RED CELL DISTRIBUTION WIDTH (BEAKER) (test jdng=612) 12.6 % 11.7-14.4 PLATELET COUNT (BEAKER) (test sinb=061) 187 K/CU MM 150-450 MEAN PLATELET VOLUME (BEAKER) (test wdmz=339) 10.5 fL 9.4-12.3 NUCLEATED RED BLOOD CELLS (BEAKER) (test eryv=608) 0 /100 WBC 0-0 NEUTROPHILS RELATIVE PERCENT (BEAKER) (test leci=805) 73 % LYMPHOCYTES RELATIVE PERCENT (BEAKER) (test ydlo=932) 15 % MONOCYTES RELATIVE PERCENT (BEAKER) (test ipbz=966) 10 % EOSINOPHILS RELATIVE PERCENT (BEAKER) (test gsqt=624) 1 % BASOPHILS RELATIVE PERCENT (BEAKER) (test frrd=189) 1 % NEUTROPHILS ABSOLUTE COUNT (BEAKER) (test dchz=279) 6.37 K/ L 1.56-6.13 LYMPHOCYTES ABSOLUTE COUNT (BEAKER) (test ifrb=639) 1.34 K/ L 1.18-3.74 MONOCYTES ABSOLUTE COUNT (BEAKER) (test rvut=931) 0.83 K/ L 0.24-0.36 EOSINOPHILS ABSOLUTE COUNT (BEAKER) (test axhu=882) 0.08 K/ L 0.04-0.36 BASOPHILS ABSOLUTE COUNT (BEAKER) (test fcvm=878) 0.06 K/ L 0.01-0.08 IMMATURE GRANULOCYTES-RELATIVE PERCENT (BEAKER) (test maws=9607) 1 % 0-1 POCT-GLUCOSE [id number] 06:29:00* Test Item Value Reference Range Comments POC-GLUCOSE METER (BEAKER) (test dwwx=1603) 150 mg/dL 70-110 TESTED AT [address] [address] POCT-GLUCOSE [id number] 05:58:00* Test Item Value Reference Range Comments POC-GLUCOSE METER (BEAKER) (test ysxz=7447) 60 mg/dL 70-110 TESTED AT [address] [address] POCT-GLUCOSE [id number] 03:11:00* Test Item Value Reference Range Comments POC-GLUCOSE METER (BEAKER) (test qppe=4831) 261 mg/dL 70-110 TESTED AT [address] [address] POCT-GLUCOSE [id number] 01:52:00* Test Item Value Reference Range Comments POC-GLUCOSE METER (BEAKER) (test tjoi=3466) 279 mg/dL 70-110 TESTED AT [address] [address] POCT-GLUCOSE [id number] 01:08:00* Test Item Value Reference Range Comments POC-GLUCOSE METER (BEAKER) (test wbln=9706) 52 mg/dL 70-110 TESTED AT [address] [address] POCT-GLUCOSE [id number] 01:07:00* Test Item Value Reference Range Comments POC-GLUCOSE METER (BEAKER) (test mahe=1833) 56 mg/dL 70-110 TESTED AT [address] [address] POCT-GLUCOSE [id number] 23:44:00* Test Item Value Reference Range Comments POC-GLUCOSE METER (BEAKER) (test rmpa=7784) 229 mg/dL 70-110 TESTED AT [address] [address] POCT-GLUCOSE [id number] 23:44:00* Test Item Value Reference Range Comments POC-GLUCOSE METER (BEAKER) (test jlfq=1616) 45 mg/dL 70-110 TESTED AT [address] [address] POCT-GLUCOSE [id number] 20:19:00* Test Item Value Reference Range Comments POC-GLUCOSE METER (BEAKER) (test pkhs=1536) 212 mg/dL 70-110 TESTED AT [address] [address] POCT-GLUCOSE [id number] 17:45:00* Test Item Value Reference Range Comments POC-GLUCOSE METER (BEAKER) (test xbsj=6160) 161 mg/dL 70-110 TESTED AT [address] [address] POCT-GLUCOSE [id number] 12:13:00* Test Item Value Reference Range Comments POC-GLUCOSE METER (BEAKER) (test btut=4184) 248 mg/dL 70-110 TESTED AT [address] [address] POCT-GLUCOSE [id number] 08:34:00* Test Item Value Reference Range Comments POC-GLUCOSE METER (BEAKER) (test atnr=2565) 147 mg/dL 70-110 TESTED AT [address] [address] COMPREHENSIVE METABOLIC [id number] 05:38:00* Test Item Value Reference Range Comments TOTAL PROTEIN (BEAKER) (test ylvm=229) 5.9 gm/dL 6.0-8.3 ALBUMIN (BEAKER) (test jkmj=5170) 3.1 g/dL 3.5-5.0 ALKALINE PHOSPHATASE (BEAKER) (test buhb=106) 114 U/L 40-150 BILIRUBIN TOTAL (BEAKER) (test emoh=047) 0.5 mg/dL 0.2-1.2 SODIUM (BEAKER) (test suqj=663) 136 meq/L 136-145 POTASSIUM (BEAKER) (test lcyp=325) 3.6 meq/L 3.5-5.1 CHLORIDE (BEAKER) (test tghd=232) 104 meq/L 98-107 CO2 (BEAKER) (test cplc=132) 25 meq/L 22-29 BLOOD UREA NITROGEN (BEAKER) (test liaq=340) 14 mg/dL 7-21 CREATININE (BEAKER) (test htxy=594) 0.60 mg/dL 0.57-1.25 GLUCOSE RANDOM (BEAKER) (test tvtr=241) 151 mg/dL 70-105 CALCIUM (BEAKER) (test orit=999) 8.1 mg/dL 8.4-10.2 AST (SGOT) (BEAKER) (test ptjb=484) 15 U/L 5-34 ALT (SGPT) (BEAKER) (test kkae=370) 17 U/L 6-55 EGFR (BEAKER) (test tefy=1890) 100 mL/min/1.73 sq m ESTIMATED GFR IS NOT ACCURATE CREATININE CLEARANCE IN PREDICTING GLOMERULAR FILTRATION RATE. ESTIMATED GFR IS NOT APPLICABLE FOR DIALYSIS PATIENTS. CBC W/PLT COUNT & AUTO [id number] 05:24:00* Test Item Value Reference Range Comments WHITE BLOOD CELL COUNT (BEAKER) (test eyex=878) 7.0 K/ L 3.5-10.5 RED BLOOD CELL COUNT (BEAKER) (test yvtz=030) 3.92 M/ L 3.93-5.22 HEMOGLOBIN (BEAKER) (test suen=301) 11.2 GM/DL 11.2-15.7 HEMATOCRIT (BEAKER) (test olrf=868) 35.0 % 34.1-44.9 MEAN CORPUSCULAR VOLUME (BEAKER) (test louw=669) 89.3 fL 79.4-94.8 MEAN CORPUSCULAR HEMOGLOBIN (BEAKER) (test wfnr=179) 28.6 pg 25.6-32.2 MEAN CORPUSCULAR HEMOGLOBIN CONC (BEAKER) (test jnmm=952) 32.0 GM/DL 32.2-35.5 RED CELL DISTRIBUTION WIDTH (BEAKER) (test ovjy=707) 12.7 % 11.7-14.4 PLATELET COUNT (BEAKER) (test qntv=669) 173 K/CU MM 150-450 MEAN PLATELET VOLUME (BEAKER) (test cvps=553) 10.6 fL 9.4-12.3 NUCLEATED RED BLOOD CELLS (BEAKER) (test pzlt=066) 0 /100 WBC 0-0 NEUTROPHILS RELATIVE PERCENT (BEAKER) (test sncs=666) 62 % LYMPHOCYTES RELATIVE PERCENT (BEAKER) (test qcji=943) 23 % MONOCYTES RELATIVE PERCENT (BEAKER) (test pbpw=851) 11 % EOSINOPHILS RELATIVE PERCENT (BEAKER) (test riut=379) 2 % BASOPHILS RELATIVE PERCENT (BEAKER) (test mumk=240) 1 % NEUTROPHILS ABSOLUTE COUNT (BEAKER) (test iwno=653) 4.32 K/ L 1.56-6.13 LYMPHOCYTES ABSOLUTE COUNT (BEAKER) (test ersd=530) 1.63 K/ L 1.18-3.74 MONOCYTES ABSOLUTE COUNT (BEAKER) (test tdov=155) 0.76 K/ L 0.24-0.36 EOSINOPHILS ABSOLUTE COUNT (BEAKER) (test jeye=173) 0.17 K/ L 0.04-0.36 BASOPHILS ABSOLUTE COUNT (BEAKER) (test ksek=410) 0.06 K/ L 0.01-0.08 IMMATURE GRANULOCYTES-RELATIVE PERCENT (BEAKER) (test eieu=3648) 0 % 0-1 POCT-GLUCOSE [id number] 21:26:00* Test Item Value Reference Range Comments POC-GLUCOSE METER (BEAKER) (test ystu=9722) 216 mg/dL 70-110 TESTED AT [place] [id number] [facility] [address] POCT-GLUCOSE [id number] 17:05:00* Test Item Value Reference Range Comments POC-GLUCOSE METER (BEAKER) (test nwhi=9989) 153 mg/dL 70-110 TESTED AT [place] [id number] [facility] [address] POCT-GLUCOSE [id number] 12:30:00* Test Item Value Reference Range Comments POC-GLUCOSE METER (BEAKER) (test kczb=0535) 206 mg/dL 70-110 TESTED AT [address] [address] DOUBLE-STRANDED DNA (DSDNA) [id number] 10:42:00* Test Item Value Reference Range Comments ANTI-DNA DS (BEAKER) (test celx=6987) Negative POCT-GLUCOSE [id number] 08:19:00* Test Item Value Reference Range Comments POC-GLUCOSE METER (BEAKER) (test gmkd=4367) 158 mg/dL 70-110 TESTED AT [facility] [address] [facility] [address] COMPLEMENT COMPONENT [id number] 06:18:00* Test Item Value Reference Range Comments C4 COMPLEMENT (BEAKER) (test eoez=332) 33 mg/dL 15-57 COMPLEMENT COMPONENT [id number] 06:18:00* Test Item Value Reference Range Comments C3 COMPLEMENT (BEAKER) (test vrze=604) 137 mg/dL 82-193 COMPREHENSIVE METABOLIC [id number] 05:37:00* Test Item Value Reference Range Comments TOTAL PROTEIN (BEAKER) (test qxhl=891) 6.5 gm/dL 6.0-8.3 ALBUMIN (BEAKER) (test arrm=2909) 3.4 g/dL 3.5-5.0 ALKALINE PHOSPHATASE (BEAKER) (test fyqh=994) 124 U/L 40-150 BILIRUBIN TOTAL (BEAKER) (test ssee=799) 0.4 mg/dL 0.2-1.2 SODIUM (BEAKER) (test gapu=173) 136 meq/L 136-145 POTASSIUM (BEAKER) (test cfvw=510) 3.8 meq/L 3.5-5.1 CHLORIDE (BEAKER) (test bjhw=178) 105 meq/L 98-107 CO2 (BEAKER) (test glyy=607) 25 meq/L 22-29 BLOOD UREA NITROGEN (BEAKER) (test mnez=908) 13 mg/dL 7-21 CREATININE (BEAKER) (test msel=242) 0.62 mg/dL 0.57-1.25 GLUCOSE RANDOM (BEAKER) (test siyk=842) 154 mg/dL 70-105 CALCIUM (BEAKER) (test ucsm=073) 8.2 mg/dL 8.4-10.2 AST (SGOT) (BEAKER) (test pmbe=730) 21 U/L 5-34 ALT (SGPT) (BEAKER) (test sjyp=700) 21 U/L 6-55 EGFR (BEAKER) (test nnrk=7342) 96 mL/min/1.73 sq m ESTIMATED GFR IS NOT ACCURATE CREATININE CLEARANCE IN PREDICTING GLOMERULAR FILTRATION RATE. ESTIMATED GFR IS NOT APPLICABLE FOR DIALYSIS PATIENTS. VANCOMYCIN LEVEL, [id number] 04:52:00* Test Item Value Reference Range Comments VANCOMYCIN TROUGH (BEAKER) (test dxyj=673) 12.6 ug/mL 10.0-20.0 Wait for result before giving dose. HOLD vancomycin if trough >20CBC W/PLT COUNT & AUTO [id number] 04:34:00* Test Item Value Reference Range Comments WHITE BLOOD CELL COUNT (BEAKER) (test yiyw=405) 7.2 K/ L 3.5-10.5 RED BLOOD CELL COUNT (BEAKER) (test pely=256) 4.22 M/ L 3.93-5.22 HEMOGLOBIN (BEAKER) (test xvcq=548) 12.1 GM/DL 11.2-15.7 HEMATOCRIT (BEAKER) (test uctk=165) 38.0 % 34.1-44.9 MEAN CORPUSCULAR VOLUME (BEAKER) (test rubq=489) 90.0 fL 79.4-94.8 MEAN CORPUSCULAR HEMOGLOBIN (BEAKER) (test hcjs=780) 28.7 pg 25.6-32.2 MEAN CORPUSCULAR HEMOGLOBIN CONC (BEAKER) (test ijrs=815) 31.8 GM/DL 32.2-35.5 RED CELL DISTRIBUTION WIDTH (BEAKER) (test oymp=739) 12.8 % 11.7-14.4 PLATELET COUNT (BEAKER) (test crop=924) 179 K/CU MM 150-450 MEAN PLATELET VOLUME (BEAKER) (test vwyq=980) 10.4 fL 9.4-12.3 NUCLEATED RED BLOOD CELLS (BEAKER) (test fgds=927) 0 /100 WBC 0-0 NEUTROPHILS RELATIVE PERCENT (BEAKER) (test deka=168) 72 % LYMPHOCYTES RELATIVE PERCENT (BEAKER) (test ibub=342) 15 % MONOCYTES RELATIVE PERCENT (BEAKER) (test iqqi=776) 9 % EOSINOPHILS RELATIVE PERCENT (BEAKER) (test cwqg=654) 2 % BASOPHILS RELATIVE PERCENT (BEAKER) (test eyxw=450) 1 % NEUTROPHILS ABSOLUTE COUNT (BEAKER) (test ivit=358) 5.16 K/ L 1.56-6.13 LYMPHOCYTES ABSOLUTE COUNT (BEAKER) (test onau=908) 1.11 K/ L 1.18-3.74 MONOCYTES ABSOLUTE COUNT (BEAKER) (test nead=367) 0.64 K/ L 0.24-0.36 EOSINOPHILS ABSOLUTE COUNT (BEAKER) (test zggi=086) 0.17 K/ L 0.04-0.36 BASOPHILS ABSOLUTE COUNT (BEAKER) (test eilu=459) 0.06 K/ L 0.01-0.08 IMMATURE GRANULOCYTES-RELATIVE PERCENT (BEAKER) (test dxeq=7074) 1 % 0-1 POCT-GLUCOSE [id number] 20:49:00* Test Item Value Reference Range Comments POC-GLUCOSE METER (BEAKER) (test rure=4317) 271 mg/dL 70-110 TESTED AT [place] [id number] [facility] [address] CT, [id number] 17:32:00FINAL REPORT CT OF THE ABDOMEN AND PELVIS CLINICAL HISTORY: Fever of unknown origin TECHNIQUE: CT of the abdomen and pelvis is performed with intravenous contrast administration. This exam was performed according to our departmental dose-optimization program which includes automated exposure control, adjustment of the mA and/or kV according to patient size and/or use of iterative reconstruction technique. COMPARISON FILM: CT of the abdomen and pelvis from 03/22/2016 DISCUSSION: LOWER THORAX: Minimal subsegmental bibasilar atelectasis. HEPATOBILIARY: Diffuse hepatic steatosis. No definite focal liver lesion. Gallbladder is unremarkable. Main portal vein is patent.PANCREAS: No pancreatic ductal dilation. No pancreatic lesion. SPLEEN: No splenomegaly. ADRENALS: No nodule. KIDNEYS/URETERS: No hydronephrosis or hydroureter. No solid lesion.PELVIC ORG ANS/BLADDER: Uterus is absent. Bladder is distended. GI TRACT: Mild colonic div erticulosis. No pericolonic inflammatory change to suggest acute diverticulitis. Normal air-filled appendix identified in the right lower quadrant. No definite bowel wall thickening or distention. PERITONEUM/RETROPERITONEUM: No free fluid o r free air.LYMPH NODES: No upper abdominal, retroperitoneal, mesenteric, or pelv ic lymphadenopathy.VESSELS: Abdominal aorta normal in caliber. BONES AND SOFT TI SSUES: No destructive osseous lesion. Scattered foci of air in the anterior abdo mohamud wall fat, likely related to injected medication. Unchanged hyperdense mate rial in the lower lumbar spinal canal, possibly related to prior procedure or dougherty rgery. Appearance is similar to comparison CT. IMPRESSION: No acute CT findings in the abdomen or pelvis. Signed: Andrea Angeles Verified Date/Time: 17:32:24 Reading Location: [address] Radiology Reading Room Elect ronically signed by: ANDREA ANGELES MD on 01/29/2017 05:32 PM POCT-GLUCOSE [id number] 17:15:00* Test Item Value Reference Range Comments POC-GLUCOSE METER (BEAKER) (test ycbw=8291) 167 mg/dL 70-110 TESTED AT [facility] [address] [facility] [address] EEG AWAKE AND [id number] 16:39:00Reason for exam:->AMS- encephalopathy? questionable h/o seizure like episode 2 years agoShould this be performed at the bedside?->YesDATE OF REPORT: 01/29/17CC: [id number]: 17-1948Start time: 12:44 pm Stop time: 13:05 pmICD-10: R 56.9CPT Code: 80279 HISTORY: 66 y/o female presenting with AMS. MEDICATIONS: Tylenol, Lipitor, Lovenox, Glucagon, Hydralazine, HumaLOG, Lopamidol, Lisinopril, Merrem, Morphine, Zofran, Protonix, Phenergan, Tramadol, Vancomycin TECHNICAL SUMMARY: This is a digital EEG recorded with 32 input channels reviewed with bipolar and referential montages using the modified combinatorial system nomenclature. DESCRIPTION OF RECORD: During the maximally alert state a 7-7.5 Hz posterior dominant rhythm was seen that was symmetric and reactive to eye opening. More anteriorly, low voltage frontocentral beta predominated. The awake background was further admixed by some diffuse 6-7 Hz activity Hz theta. Drowsiness was characterized by alpha attenuation and increased frontocentral theta. Sleep architectures were not present. IMPRESSION: This EEG is abnormal due to the presence of mild diffuse background slowing. There is no evidence for epileptiform abnormality, including absence of electrographic seizure. CLINICAL CORRELATION: Diffuse slowing as seen in this record supports the presence of a mild encephalopathy. An EEG without epileptiform discharges does not exclude the possibility of epilepsy. Anali Davidson, MDNeurophysiology/Epilepsy FellowDawillard Lee MDNeurophysiology/Epilepsy Attending -GLUCOSE [id number] 11:45:00* Test Item Value Reference Range Comments POC-GLUCOSE METER (BEAKER) (test onzm=8966) 195 mg/dL 70-110 TESTED AT [facility] [address] [facility] [address] RESPIRATORY PANEL [id number] 11:24:00* Test Item Value Reference Range Comments HUMAN METAPNEUMOVIRUS (BEAKER) (test icas=7205) Not detected Not detected, Inconclusive RHINOVIRUS (BEAKER) (test mpxi=1934) Not detected Not detected, Inconclusive INFLUENZA A (BEAKER) (test wile=9967) Not detected Not detected, Inconclusive INFLUENZA A SUBTYPE H1 (BEAKER) (test tsmt=3044) Not detected Not detected, Inconclusive INFLUENZA A SUBTYPE H3 (BEAKER) (test abdv=3236) Not detected Not detected, Inconclusive INFLUENZA A SUBTYPE H1-2009 (BEAKER) (test snwg=0017) Not detected Not detected, Inconclusive INFLUENZA B (BEAKER) (test epjh=5898) Not detected Not detected, Inconclusive RESPIRATORY SYNCYTIAL VIRUS (BEAKER) (test vuva=1363) Not detected Not detected, Inconclusive PARAINFLUENZA VIRUS 1 (BEAKER) (test wbma=9932) Not detected Not detected, Inconclusive PARAINFLUENZA VIRUS 2 (BEAKER) (test fzej=9581) Not detected Not detected, Inconclusive PARAINFLUENZA VIRUS 3 (BEAKER) (test ijuu=6416) Not detected Not detected, Inconclusive PARAINFLUENZA VIRUS 4 (BEAKER) (test itiu=6080) Not detected Not detected, Inconclusive ADENOVIRUS (BEAKER) (test btgq=8074) Not detected Not detected, Inconclusive CORONAVIRUS 229E (BEAKER) (test faer=2355) Not detected Not detected, Inconclusive CORONAVIRUS HKU1 (BEAKER) (test zlap=6664) Not detected Not detected, Inconclusive CORONAVIRUS NL63 (BEAKER) (test zomv=7871) Not detected Not detected, Inconclusive CORONAVIRUS OC43 (BEAKER) (test hwie=1309) Not detected Not detected, Inconclusive BORDETELLA PERTUSSIS (BEAKER) (test jccc=1205) Not detected Not detected, Inconclusive CHLAMYDOPHILA PNEUMONIAE (BEAKER) (test uigg=3506) Not detected Not detected, Inconclusive MYCOPLASMA PNEUMONIAE (BEAKER) (test gqxc=1498) Not detected Not detected, Inconclusive U/S, ABDOMINAL, [id number] 10:29:00Abdomen limited area? Add comment if clarification is needed.->Gall BladderReason for exam:->Fever, abdominal pain, r/o GB sourceShould this be performed at the bedside?->YesFINAL REPORT Comparison: Right upper quadrant ultrasound, 09/27/2014 Discussion: Sonographic evaluation of the right upper quadrant of the abdomen was performed. Liver: Measures 14.1 cm in length at the right midclavicular. It demonstrates normal echogenicity without evidence of focal lesions. Main portal vein diameter 11 mm. Biliary tree: Common duct 5 mm. Gallbladder: No shadowing calculus/calculi. No wall thickening. No pericholecystic fluid.Negative sonographic Quintero's sign. Pancreas: Visualized portions demonstrate no abnormalities. Ascites: No fluid Kidneys: The right kidney measures 9.9cm. It demonstrates normal cortical echogenicity, without evidence of hydronephrosis , mass, or calculi. IVC/Aorta: Segments partially seen demonstrate no obvious a bnormalities. IMPRESSION: Normal right upper quadrant abdomen ultrasound. Fang d: Don Zarco Verified Date/Time: 01/29/2017 10:29:13 Reading Locatio n: [facility] B1 [id number] Ultrasound Reading Room -NUCLEAR ANTIBODY (MELANIE)2017-01-29 10:16:00 * Test Item Value Reference Range Comments ANTI-NUCLEAR ANTIBODY (MELANIE) (BEAKER) (test pduk=972) Positive Negative MELANIE TITER AND [id number] 10:16:00* Test Item Value Reference Range Comments MELANIE TITER (BEAKER) (test ofiq=4926) :640 MELANIE PATTERN (BEAKER) (test kaaj=9304) Homogeneous POCT-GLUCOSE [id number] 08:07:00* Test Item Value Reference Range Comments POC-GLUCOSE METER (BEAKER) (test luib=7606) 209 mg/dL 70-110 TESTED AT [facility] [address] [facility] [address] COMPREHENSIVE METABOLIC [id number] 05:53:00* Test Item Value Reference Range Comments TOTAL PROTEIN (BEAKER) (test sfpd=907) 7.2 gm/dL 6.0-8.3 ALBUMIN (BEAKER) (test uspd=3713) 3.7 g/dL 3.5-5.0 ALKALINE PHOSPHATASE (BEAKER) (test rqbj=285) 163 U/L 40-150 BILIRUBIN TOTAL (BEAKER) (test demd=505) 0.6 mg/dL 0.2-1.2 SODIUM (BEAKER) (test ofab=557) 136 meq/L 136-145 POTASSIUM (BEAKER) (test omys=760) 3.9 meq/L 3.5-5.1 CHLORIDE (BEAKER) (test jqku=916) 105 meq/L 98-107 CO2 (BEAKER) (test zydx=386) 22 meq/L 22-29 BLOOD UREA NITROGEN (BEAKER) (test bkpm=815) 11 mg/dL 7-21 CREATININE (BEAKER) (test tugm=169) 0.65 mg/dL 0.57-1.25 GLUCOSE RANDOM (BEAKER) (test aydi=135) 182 mg/dL 70-105 CALCIUM (BEAKER) (test aqnn=661) 8.7 mg/dL 8.4-10.2 AST (SGOT) (BEAKER) (test bkpq=130) 19 U/L 5-34 ALT (SGPT) (BEAKER) (test qjlo=653) 25 U/L 6-55 EGFR (BEAKER) (test qsww=8056) 91 mL/min/1.73 sq m ESTIMATED GFR IS NOT ACCURATE CREATININE CLEARANCE IN PREDICTING GLOMERULAR FILTRATION RATE. ESTIMATED GFR IS NOT APPLICABLE FOR DIALYSIS PATIENTS. CBC W/PLT COUNT & AUTO [id number] 05:29:00* Test Item Value Reference Range Comments WHITE BLOOD CELL COUNT (BEAKER) (test ypuy=333) 10.1 K/ L 3.5-10.5 RED BLOOD CELL COUNT (BEAKER) (test dnht=462) 4.72 M/ L 3.93-5.22 HEMOGLOBIN (BEAKER) (test vspp=161) 13.5 GM/DL 11.2-15.7 HEMATOCRIT (BEAKER) (test scuc=248) 42.3 % 34.1-44.9 MEAN CORPUSCULAR VOLUME (BEAKER) (test omer=378) 89.6 fL 79.4-94.8 MEAN CORPUSCULAR HEMOGLOBIN (BEAKER) (test zntf=891) 28.6 pg 25.6-32.2 MEAN CORPUSCULAR HEMOGLOBIN CONC (BEAKER) (test kwmo=763) 31.9 GM/DL 32.2-35.5 RED CELL DISTRIBUTION WIDTH (BEAKER) (test bajl=852) 12.6 % 11.7-14.4 PLATELET COUNT (BEAKER) (test hqsu=565) 201 K/CU MM 150-450 MEAN PLATELET VOLUME (BEAKER) (test kruz=656) 10.7 fL 9.4-12.3 NUCLEATED RED BLOOD CELLS (BEAKER) (test fbyl=275) 0 /100 WBC 0-0 NEUTROPHILS RELATIVE PERCENT (BEAKER) (test eqdc=264) 72 % LYMPHOCYTES RELATIVE PERCENT (BEAKER) (test olfk=685) 18 % MONOCYTES RELATIVE PERCENT (BEAKER) (test gqqs=274) 8 % EOSINOPHILS RELATIVE PERCENT (BEAKER) (test vxxz=928) 1 % BASOPHILS RELATIVE PERCENT (BEAKER) (test hdfd=663) 1 % NEUTROPHILS ABSOLUTE COUNT (BEAKER) (test saxw=804) 7.28 K/ L 1.56-6.13 LYMPHOCYTES ABSOLUTE COUNT (BEAKER) (test smmd=468) 1.80 K/ L 1.18-3.74 MONOCYTES ABSOLUTE COUNT (BEAKER) (test oanp=148) 0.82 K/ L 0.24-0.36 EOSINOPHILS ABSOLUTE COUNT (BEAKER) (test qbfe=356) 0.06 K/ L 0.04-0.36 BASOPHILS ABSOLUTE COUNT (BEAKER) (test zbca=460) 0.06 K/ L 0.01-0.08 IMMATURE GRANULOCYTES-RELATIVE PERCENT (BEAKER) (test itax=9278) 1 % 0-1 [id number] 04:17:00* Test Item Value Reference Range Comments RPR SCREEN (BEAKER) (test ggiv=443) Nonreactive Nonreactive MR, BRAIN, WITHOUT [id number] 22:05:00FINAL REPORT MR, BRAIN, WITHOUT CONTRAST INDICATION: fever and new encephelopathy TECHNIQUE: Multiplanar, multisequence MR imaging of the brain without intravenous contrast. COMPARISON: Head CT from earlier today FINDINGS: Cerebral hemispheres are symmetric without signal abnormality. Specifically, there is no parenchymal signal abnormality to suggest a cerebritis and there is no abnormal FLAIR signal in the sulci at suggest a meningitis. Note that contrast-enhanced MRI and lumbar puncture are more sensitive for evaluation of meningitis and this diagnosis is not excluded on the basis of this exam.Midline structures and posterior fossa within normal limits.No acute infarction or mass.No acute intracranial hemorrhage.The subarachnoid calcifications seen on prior CT are not as well demonstrated.No acute hydrocephalus.Preserved flow voids in the major intracranial vascular structures. Symmetric globes.The paranasal sinuses and mastoid air cells are well aerated. IMPRESSION:No acute intracranial abnormalit y. Signed: Amador Goins MDReport Verified Date/Time: 01/28/2017 22:05:48 Jessie melgar Location: [address] Ortho Consult Reading Room Electronically fang d by: AMADOR GOINS MD on 01/28/2017 10:05 PM POCT-GLUCOSE [id number] 21:03:00* Test Item Value Reference Range Comments POC-GLUCOSE METER (BEAKER) (test ptkf=6280) 199 mg/dL 70-110 TESTED AT [place] [id number] [facility] [address] POCT-GLUCOSE [id number] 17:13:00* Test Item Value Reference Range Comments POC-GLUCOSE METER (BEAKER) (test mnlb=2786) 273 mg/dL 70-110 TESTED AT [address] [address] [id number] 16:41:00* Test Item Value Reference Range Comments AMMONIA (BEAKER) (test kzga=115) 22 mol/L 18-72 TSH/FREE T4 IF [id number] 15:27:00* Test Item Value Reference Range Comments THYROID STIMULATING HORMONE (BEAKER) (test uuqb=406) 1.01 uIU/mL 0.35-4.94 VITAMIN B12 AND [id number] 15:27:00* Test Item Value Reference Range Comments VITAMIN B12 (BEAKER) (test leou=783) > pg/mL 213-816 FOLATE (BEAKER) (test ygwh=195) 15.4 ng/mL >=7.0 [id number] 13:11:00* Test Item Value Reference Range Comments LIPASE (BEAKER) (test djyw=946) 7 U/L 8-78 POCT-GLUCOSE [id number] 12:12:00* Test Item Value Reference Range Comments POC-GLUCOSE METER (BEAKER) (test aoeu=1730) 236 mg/dL 70-110 TESTED AT [facility] [address] [facility] [address] [id number] 11:03:00* Test Item Value Reference Range Comments PROTIME (BEAKER) (test tnqp=779) 13.7 seconds 11.7-14.7 INR (BEAKER) (test loti=349) 1.1 <=5.9 PARTIAL THROMBOPLASTIN TIME (BEAKER) (test vyvs=704) 28.9 seconds 22.5-36.0 RECOMMENDED COUMADIN/WARFARIN INR THERAPY RANGESSTANDARD DOSE: 2.0 - 3.0 Inclu guilherme: PROPHYLAXIS for venous thrombosis, systemic embolization; TREATMENT for carmela ous thrombosis and/or pulmonary embolus.HIGH RISK: Target INR is 2.5-3.5 for pat ients with mechanical heart valves.URINALYSIS W/ REFLEX URINE [id number] 07:53:00* Test Item Value Reference Range Comments COLOR (BEAKER) (test zzbj=150) Yellow CLARITY (BEAKER) (test zgjy=698) Clear SPECIFIC GRAVITY UA (BEAKER) (test dcqz=161) 1.010 1.001-1.035 PH UA (BEAKER) (test eyuj=371) 6.0 5.0-8.0 PROTEIN UA (BEAKER) (test kemt=267) 100 mg/dL Negative GLUCOSE UA (BEAKER) (test zlha=317) 500 mg/dL Negative KETONES UA (BEAKER) (test lmiy=413) 40 mg/dL Negative BILIRUBIN UA (BEAKER) (test excq=989) Negative Negative BLOOD UA (BEAKER) (test vula=123) Negative Negative NITRITE UA (BEAKER) (test ptmd=531) Negative Negative LEUKOCYTE ESTERASE UA (BEAKER) (test gfkr=334) Negative Negative UROBILINOGEN UA (BEAKER) (test svli=141) 0.2 mg/dL 0.2-1.0 RBC UA (BEAKER) (test tgfg=363) < /HPF WBC UA (BEAKER) (test slvj=583) 0 /HPF SOURCE(BEAKER) (test schp=4281) CT, BRAIN, WITHOUT [id number] 07:38:00Reason for exam:->APHASIAWhat is the patient's sedation requirement?->No SedationFINAL REPORT CT head without contrast 01/28/2017 7:37 AM CLINICAL HISTORY: Decreased alertnessAPHASIA TECHNIQUE: Axial noncontrast CT images through the head were obtained. This examination was performed according to our departmental dose optimization program, which includes automated exposure control, adjustment of the mA and/or kV according to patient size, and/or use of iterated reconstruction technique. COMPARISON: 01/28/2017 FINDINGS: There is no h emorrhage, extra-axial collection, mass, hydrocephalus, or midline shift. There is no CT evidence for cerebral infarction. Scattered subcentimeter calcification s in both cerebral hemispheres in the cerebellum suggests sequela of prior infec tion. There is generalized parenchymal volume loss. The visualized paranasal si nuses and mastoid air cells are well aerated. The skull is intact. IMPRESSION: N o intracranial hemorrhage or mass effect. If concern for acute pathology persist s, further evaluation with MRI is recommended. Signed: Juanjo Torres Verified Date/Time: 01/28/2017 07:38:44 Reading Location: [address] Neuro Re ading Room 07: 38 AM HEPATIC FUNCTION [id number] 07:27:00* Test Item Value Reference Range Comments TOTAL PROTEIN (BEAKER) (test aflz=802) 7.5 gm/dL 6.0-8.3 ALBUMIN (BEAKER) (test triq=9122) 3.9 g/dL 3.5-5.0 BILIRUBIN TOTAL (BEAKER) (test ybwm=670) 0.6 mg/dL 0.2-1.2 BILIRUBIN DIRECT (BEAKER) (test nvws=473) 0.2 mg/dL 0.1-0.5 ALKALINE PHOSPHATASE (BEAKER) (test uqlj=195) 194 U/L 40-150 AST (SGOT) (BEAKER) (test iquw=188) 20 U/L 5-34 ALT (SGPT) (BEAKER) (test sygw=145) 30 U/L 6-55 BASIC METABOLIC [id number] 07:27:00* Test Item Value Reference Range Comments SODIUM (BEAKER) (test tgtp=113) 134 meq/L 136-145 POTASSIUM (BEAKER) (test txjn=501) 4.0 meq/L 3.5-5.1 CHLORIDE (BEAKER) (test kyxe=535) 102 meq/L 98-107 CO2 (BEAKER) (test lpau=134) 25 meq/L 22-29 BLOOD UREA NITROGEN (BEAKER) (test awvo=882) 11 mg/dL 7-21 CREATININE (BEAKER) (test oykb=008) 0.69 mg/dL 0.57-1.25 GLUCOSE RANDOM (BEAKER) (test eyqw=064) 252 mg/dL 70-105 CALCIUM (BEAKER) (test fhuk=904) 8.9 mg/dL 8.4-10.2 EGFR (BEAKER) (test bjum=9577) 85 mL/min/1.73 sq m ESTIMATED GFR IS NOT ACCURATE CREATININE CLEARANCE IN PREDICTING GLOMERULAR FILTRATION RATE. ESTIMATED GFR IS NOT APPLICABLE FOR DIALYSIS PATIENTS. BLOOD GAS, [id number] 07:18:00* Test Item Value Reference Range Comments PH VENOUS (BEAKER) (test rgju=748) 7.40 7.32-7.42 PCO2 VENOUS (BEAKER) (test onas=596) 48 mmHg 41-51 PO2 VENOUS (BEAKER) (test apyt=379) 40 mmHg 25-40 O2 SATURATION VENOUS (BEAKER) (test mbjo=751) 74.3 % 40.0-70.0 HCO3 VENOUS (BEAKER) (test sqmy=387) 29 mmol/L 21-29 BASE EXCESS VENOUS (BEAKER) (test nexq=947) 3.1 mmol/L -2.0-3.0 PATIENT TEMPERATURE (BEAKER) (test fxbc=0258) 37.0 C FIO2 (BEAKER) (test qbes=2372) 21.0 % KETONE, [id number] 07:04:00* Test Item Value Reference Range Comments KETONES, BLOOD (BEAKER) (test dyym=4423) 0.2 mmol/L <0.4 CBC W/PLT COUNT & AUTO [id number] 07:03:00* Test Item Value Reference Range Comments WHITE BLOOD CELL COUNT (BEAKER) (test awjp=848) 6.7 K/ L 3.5-10.5 RED BLOOD CELL COUNT (BEAKER) (test feva=870) 4.80 M/ L 3.93-5.22 HEMOGLOBIN (BEAKER) (test xtpq=750) 13.7 GM/DL 11.2-15.7 HEMATOCRIT (BEAKER) (test negj=354) 43.1 % 34.1-44.9 MEAN CORPUSCULAR VOLUME (BEAKER) (test ngcm=153) 89.8 fL 79.4-94.8 MEAN CORPUSCULAR HEMOGLOBIN (BEAKER) (test mjua=032) 28.5 pg 25.6-32.2 MEAN CORPUSCULAR HEMOGLOBIN CONC (BEAKER) (test xflq=315) 31.8 GM/DL 32.2-35.5 RED CELL DISTRIBUTION WIDTH (BEAKER) (test cerw=031) 12.6 % 11.7-14.4 PLATELET COUNT (BEAKER) (test ehvr=394) 227 K/CU MM 150-450 MEAN PLATELET VOLUME (BEAKER) (test lwsx=869) 10.2 fL 9.4-12.3 NUCLEATED RED BLOOD CELLS (BEAKER) (test sfqq=467) 0 /100 WBC 0-0 NEUTROPHILS RELATIVE PERCENT (BEAKER) (test lkcr=394) 73 % LYMPHOCYTES RELATIVE PERCENT (BEAKER) (test jfol=831) 19 % MONOCYTES RELATIVE PERCENT (BEAKER) (test flpe=265) 6 % EOSINOPHILS RELATIVE PERCENT (BEAKER) (test nwvt=815) 1 % BASOPHILS RELATIVE PERCENT (BEAKER) (test hjim=859) 1 % NEUTROPHILS ABSOLUTE COUNT (BEAKER) (test qdbt=960) 4.91 K/ L 1.56-6.13 LYMPHOCYTES ABSOLUTE COUNT (BEAKER) (test comc=128) 1.31 K/ L 1.18-3.74 MONOCYTES ABSOLUTE COUNT (BEAKER) (test ozwp=165) 0.38 K/ L 0.24-0.36 EOSINOPHILS ABSOLUTE COUNT (BEAKER) (test edfp=837) 0.04 K/ L 0.04-0.36 BASOPHILS ABSOLUTE COUNT (BEAKER) (test wfcw=498) 0.05 K/ L 0.01-0.08 IMMATURE GRANULOCYTES-RELATIVE PERCENT (BEAKER) (test bvxa=6294) 1 % 0-1 POCT-LACTIC ACID, [id number] 06:59:00* Test Item Value Reference Range Comments POC-LACTIC ACID, VENOUS (BEAKER) (test zgdr=1569) 0.9 mmol/L 0.9-1.7 TESTED AT [address] [address] RAD, CHEST, 1 VIEW, NON [id number] 06:53:00Reason for exam:->APHASIAShould this be performed at the bedside?->YesFINAL REPORT RAD, CHEST, 1 VIEW, NON DEPT INDICATION: APHASIA COMPARISON: Chest x-ray in 2016 TECHNIQUE: Single frontal view of the chest. IMPRESSION:Low lung volumes which accentuates the central pulmonary vasculature.Cardiomediastinal silhouette within normal limits.No overt consolidative or congestive change.No acute osseous abnormality. Signed: Amador Goins MDReport Verified Date/Time: 01/28/2017 06:53:35 Reading Location: [facility] [id number] Ortho Consult Reading Room - GLUCOSE [id number] 06:27:00* Test Item Value Reference Range Comments POC-GLUCOSE METER (BEAKER) (test tahk=9355) 259 mg/dL 70-110 TESTED AT [address] [address]
--- OUTSIDE RECORDS SUMMARY | 2018-12-11 13:27 | XMS REPORT | Summary of Care ---
Author Author [facility] Organization [facility] Address Unknown Phone Unavailable Encounter HQ Kaykay(FIN) [id number] Date(s): 10/04/17 - 10/04/17 [facility] [address] [place] [address]- [phone] Encounter Diagnosis Chronic cough (Discharge Diagnosis) - 10/04/17 Discharge Disposition: Home or Self Care Attending Physician: Nelia Rayo MD Vital Signs Most recent to 1 2 oldest [Reference Range]: Height 157.48 cm (10/04/17 4:10 AM) Temperature Oral 98 DegF 97.8 DegF [96.4-99.1 DegF] (10/04/17 7:04 AM) (10/04/17 4:10 AM) Blood Pressure 142/76 mmHg 156/72 mmHg [90-140/60-90 mmHg] *HI* *HI* (10/04/17 7:04 AM) (10/04/17 4:10 AM) Respiratory Rate 16 BRMIN 20 BRMIN [14-20 BRMIN] (10/04/17 7:04 AM) (10/04/17 4:10 AM) Peripheral Pulse 74 bpm 73 bpm Rate [60-100 bpm] (10/04/17 7:04 AM) (10/04/17 4:10 AM) Weight 75.909 kg (10/04/17 4:10 AM) Body Mass Index 30.61 m2 (10/04/17 4:10 AM) Problem List Condition Effective Dates Status Health Status Informant Benign Active hypertension(Confirm ed)1 Chronic Active cough(Confirmed) Chronic Active headaches(Confirmed) Non-compliance(Confi Active rmed) GERD - Active Gastro-esophageal reflux disease(Confirmed) Type 2 diabetes Active mellitus with hyperglycemia(Confir med) Hyperlipidemia(Confi 01/08/13 Active rmed)2 Microalbuminuria(Con Active firmed) Obesity(Confirmed) Active Insomnia(Confirmed) Active Subclinical Active hypothyroidism(Confi rmed) 1Data migrated from [employer] on 08/13/14. 2Data migrated from [employer] on 08/13/14. Allergies, Adverse Reactions, Alerts Substance Reaction Severity Status penicillins1 Active 1Data migrated from [employer] on 10/13/14. Originally documented as PENICILLIN. Medications Medrol Dosepak 4 mg oral tablet See Instructions, PO, Take by mouth as directed on label., # 1 Pack, 0 Refill(s) Start Date: 10/04/17 Stop Date: 10/10/17 Status: Ordered Results No data available for [...]
--- OUTSIDE RECORDS SUMMARY | 2018-12-11 13:27 | XMS REPORT | Summary of Care ---
Author Author [facility] Organization [facility] Address Unknown Phone Unavailable Encounter HQ Kaykay(FIN) [id number] Date(s): 10/04/17 - 10/04/17 [facility] [address] [place] [address]- Encounter Diagnosis Chronic cough (Discharge Diagnosis) - 10/04/17 Cough (Final) - 10/08/17 Type 2 diabetes mellitus without complications (Final) - Essential (primary) hypertension (Final) - Hyperlipidemia, unspecified (Final) - Personal history of nicotine dependence (Final) - manager intermediate (current) use of insulin (Final) - Discharge Disposition: Home or Self [...] Active hypothyroidism(Confi rmed) 1Data migrated from [employer] on 08/13/14. 2Data migrated from [employer] on 08/13/14. Allergies, Adverse Reactions, Alerts Substance Reaction Severity Status penicillins1 Active 1Data migrated from [employer] on 10/13/14. Originally documented as PENICILLIN. Medications [...]
--- OUTSIDE RECORDS SUMMARY | 2018-12-11 13:27 | XMS REPORT | Summary of Care ---
Author Author [facility] Organization [facility] Address Unknown Phone Unavailable Encounter HQ Kaykay(FIN) [id number] Date(s): 06/11/17 - 06/11/17 [facility] [address] [place] [address]- Encounter Diagnosis Other specified disorders of breast (Final) - 06/17/17 Solitary cyst of left breast (Final) - Solitary cyst of right breast (Final) - Discharge Disposition: Home or Self [...] CKD stage 2(Confirmed) 1Data migrated from [employer] on 08/13/14. 2Data migrated from [employer] on 08/13/14. Allergies, Adverse Reactions, Alerts Substance Reaction Severity Status penicillins1 Active 1Data migrated from [employer] on 10/13/14. Originally documented as PENICILLIN. Medications [...]
--- NOTE | 2018-12-11 14:46 | NUR ---
PT TRANSFERED TO [facility] ([facility]) PT AND FAMILY OPTED TO DRIVE THEMSELVES FORM SIGNED AND PLACED IN CHART PT AND FAMILY AWARE OF POC
--- NOTE | 2018-12-11 15:16 | NUR ---
PATIENT ARRIVED FROM [facility] FOR CT SCAN. NOTIFIED RADIOLOGY.
--- NOTE | 2018-12-11 15:22 | Diagnostic Imaging Report ---
Right shoulder, 1 view. Pelvis, 1 view. History: Fall. Findings: The soft tissues are normal. The bones are diffusely osteopenic. There is no evidence of acute fracture or dislocation. Mild degenerative changes are present in the right shoulder. The hip joints are within normal limits. Multiple sclerotic densities are noted in the right pelvic bone, superior to the right acetabulum. IMPRESSION: No evidence of fracture or dislocation. Sclerotic densities in the right pelvic bone concerning for metastatic disease. This may be further evaluated with nuclear medicine bone scan if clinically indicated. Signed by: Haris Barr on 12/11/2018 3:19 PM
--- NOTE | 2018-12-11 16:06 | Diagnostic Imaging Report ---
Examination: CT head without contrast Clinical Indication: Fall with head injury. Technique: Transaxial noncontrast images from the skull base through the vertex were obtained. Sagittal and coronal reformatted images were done. Dose modulation, iterative reconstruction, and/or weight based adjustment of the mA/kV was utilized to reduce the radiation dose to as low as reasonably achievable. Comparison: None. Findings: Scalp: No abnormalities. Bones: Intact. No fractures. No blastic or lytic lesions. Brain sulci: Appropriate for patient's age. Ventricles: Normal in size and configuration. No hydrocephalus. Extra-axial space: No abnormalities. Parenchyma: There are many punctate areas of dystrophic calcification in the supra and infratentorial brain and is the sequela of prior infectious process No masses, hemorrhage, or acute or chronic cortical based vascular insults. Suprasellar region: No abnormalities. Craniocervical junction: The foramen magnum is patent. No Chiari one malformation. Incidental findings: Atherosclerotic calcification of the cavernous and supraclinoid internal carotid arteries. Impression: No acute intracranial abnormality. Findings as described above are chronic as a sequela of prior infectious process. Signed by: Dr. Allison Ortiz M.D. on 12/11/2018 4:03 PM
--- NOTE | 2018-12-11 16:08 | Diagnostic Imaging Report ---
Examination: CT CERVICAL SPINE WO CONTRAST HISTORY:Fall with neck injury COMPARISON:None. TECHNIQUE: Multidetector helical axial images were obtained without contrast from the foramen magnum to T1. Coronal and sagittal reformatted images were done. Bone and soft tissue windows were evaluated. Dose modulation, iterative reconstruction, and/or weight based adjustment of the mA/kV was utilized to reduce the radiation dose to as low as reasonably achievable. FINDINGS: Alignment:Normal alignment with straightening of normal lordosis. Vertebrae: Normal height and density. No acute fracture, infection or neoplasm. Disc space heights: Moderately narrowed at C4-C5 and C5-C6. Caliber of spinal canal: Developmentally normal. Posterior fossa and craniocervical junction: Foramen magnum patent. No Chiari 1 malformation. Soft tissues: No abnormality. Degenerative changes: Diffuse disc osteophyte complexes at C4-C5 and C5-C6 without canal or foraminal stenosis. Visualized lung apices: No abnormalities. IMPRESSION: 1. No acute abnormalities. 2. Mild degenerative changes at C4-C5 and C5-C6. Signed by: Dr. Allison Ortiz M.D. on 12/11/2018 4:05 PM
[2018-12-11 16:53] VITALS: BP 158/71
== END 2018-12-11 16:55 | disposition home or self-care (01) ==
LOC: FSED 13:23 → ER 16:55
DX: Z04.3 Encounter for examination and observation following other accident (principal); S00.83XA Contusion of other part of head, initial encounter; M25.511 Pain in right shoulder; W18.30XA Fall on same level, unspecified, initial encounter; Y92.531 Health care provider office as the place of occurrence of the external cause
CPT/HCPCS: 70450; 72125; 72170; 99283